=== PATIENT | female | born 1950 | race African-American/Black ===

== ENCOUNTER 2016-05-14 16:54 | Emergency (ER) | payer OTHER ==
[~2016-05-14] VITALS: Ht 160 cm; Wt 85.0 kg
[~2016-05-14 16:54] MED LIST: ATOR40TA28 PO; CARV40CR PO; EXEN10PE SQ; FURO40 PO; HYDR-3965 PO; HYDR25TA PO; IBUP-1547 PO; LISI-618 PO; METH10TA2 PO; OMEP20 PO; VERA180C4 PO
[2016-05-14 17:11] LABS: GLUCOSE,POINT OF CARE 197 MG/DL (70-110)
[2016-05-14 18:50] LABS: BASOPHILS % (AUTO) 0.8 % (0.0-2.0); HEMATOCRIT 41.9 % (36-46); LYMPHOCYTES # (AUTO) 2.3 K/uL (1.0-4.8); LYMPHOCYTES % (AUTO) 44.8 % (22.0-44.0); MEAN CORPUSCULAR HEMOGLOBIN 31.3 pg (26.0-34.0); MEAN CORPUSCULAR HGB CONC 33.5 G/dL (31.0-37.0); MEAN CORPUSCULAR VOLUME 94 fL (80-100); MONOCYTES # (AUTO) 0.4 K/uL (0.1-1.0); MONOCYTES % (AUTO) 8.6 % (2.0-9.0); NEUTROPHILS # (AUTO) 2.2 K/uL (1.8-7.7); NEUTROPHILS % (AUTO) 43.8 % (40.0-70.0); PLATELET COUNT (AUTO) 156 K/uL (150-450); RED BLOOD CELL COUNT(AUTO) 4.48 MIL/uL (4.00-5.20); RED CELL DISTRIBUTION WIDTH 12.9 % (11.5-14.5); WHITE BLOOD COUNT (AUTO) 5.1 K/uL (4.5-11.0)
[2016-05-14 19:00] LABS: ANION GAP 6 mmol/L (8-16); CARBON DIOXIDE 30 mmol/L (22-29); CHLORIDE 103 mmol/L (98-107); CREATININE 0.61 mg/dL (0.60-1.30); GLOMERULAR FILTR. RATE CALC > 60 mL/min (>60); POTASSIUM 3.5 mmol/L (3.5-5.1); SODIUM SERUM 139 mmol/L (136-145); UREA NITROGEN, BLOOD 12 mg/dL (7-18)
[2016-05-14 19:07] LABS: ALANINE AMINOTRANSFERASE 47 U/L (12-78); ALBUMIN 2.9 g/dL (3.4-5.0); ASPARTATE AMINOTRANSFERASE 27 U/L (15-37); BILIRUBIN,TOTAL 0.2 mg/dL (0.1-1.0); TOTAL PROTEIN, SERUM 7.3 g/dL (6.4-8.2)
[2016-05-14] MEDS ORDERED: SODIUM CHLORIDE 0.9% 1,000 ML IV ONE (19:30)
[2016-05-14 20:31] LABS: GLUCOSE,POINT OF CARE 104 MG/DL (70-110)
[2016-05-14 20:49] VITALS: BP 141/74
== END 2016-05-14 21:05 | disposition home or self-care (01) ==
LOC: EMS 16:55
DX: E11.65 Type 2 diabetes mellitus with hyperglycemia (principal); I10 Essential (primary) hypertension; E78.00 Pure hypercholesterolemia, unspecified; F17.210 Nicotine dependence, cigarettes, uncomplicated; Z88.0 Allergy status to penicillin
CPT/HCPCS: 36415; 80053; 82948; 82962; 83690; 84484; 85025; 93005; 99285; J7030

== ENCOUNTER → 2016-06-17 | Outpatient (CLI) | payer OTHER ==
[~2016-06-17] MED LIST changes: -FURO40 PO; -HYDR-3965 PO
== END | disposition home or self-care (01) ==
LOC: RADPV 13:26
PROVIDERS: ATTEND Orthopaedic Surgery
DX: Z51.89 Encounter for other specified aftercare (principal)

== ENCOUNTER 2016-11-21 18:54 | Emergency (ER) | payer OTHER ==
[~2016-11-21] VITALS: Ht 162.6 cm; Wt 86.0 kg
[2016-11-21] MEDS ORDERED: CLON.1 PO (19:07)
[2016-11-21] MEDS ORDERED: SOFO1TAB PO (19:07)
[2016-11-21] MEDS ORDERED: ASPIRIN 325 MG TABLET PO ONE (21:00)
[2016-11-21 21:10] LABS: BASOPHILS # (AUTO) 0.05 K/uL (0.00-0.20); BASOPHILS % (AUTO) 0.9 % (0.0-2.0); EOSINOPHILS # (AUTO) 0.19 K/uL (0.00-0.70); EOSINOPHILS % (AUTO) 3.37 % (1.0-6.0); HEMATOCRIT 40.1 % (36-46); HEMOGLOBIN 13.5 g/dL (12.0-16.0); LYMPHOCYTES # (AUTO) 2.7 K/uL (1.0-4.8); LYMPHOCYTES % (AUTO) 48.1 % (22.0-44.0); MEAN CORPUSCULAR HEMOGLOBIN 31.5 pg (26.0-34.0); MEAN CORPUSCULAR HGB CONC 33.7 G/dL (31.0-37.0); MEAN CORPUSCULAR VOLUME 93 fL (80-100); MONOCYTES # (AUTO) 0.4 K/uL (0.1-1.0); MONOCYTES % (AUTO) 6.9 % (2.0-9.0); NEUTROPHILS # (AUTO) 2.3 K/uL (1.8-7.7); NEUTROPHILS % (AUTO) 40.8 % (40.0-70.0); PLATELET COUNT (AUTO) 175 K/uL (150-450); RED BLOOD CELL COUNT(AUTO) 4.29 MIL/uL (4.00-5.20); RED CELL DISTRIBUTION WIDTH 12.3 % (11.5-14.5); WHITE BLOOD COUNT (AUTO) 5.6 K/uL (4.5-11.0)
[2016-11-21 21:16] LABS: ANION GAP 9 mmol/L (8-16); CALCIUM, TOTAL 9.3 mg/dL (8.8-10.5); CARBON DIOXIDE 30 mmol/L (22-29); CHLORIDE 104 mmol/L (98-107); CREATININE 0.84 mg/dL (0.60-1.30); GLOMERULAR FILTR. RATE CALC > 60 mL/min (>60); POTASSIUM 3.3 mmol/L (3.5-5.1); SODIUM SERUM 143 mmol/L (136-145); UREA NITROGEN, BLOOD 10 mg/dL (7-18)
[2016-11-21 21:20] LABS: CREATINE KINASE, TOTAL 142 U/L (26-192)
[2016-11-21 21:41] LABS: ALANINE AMINOTRANSFERASE 19 U/L (12-78); ALBUMIN 3.1 g/dL (3.4-5.0); ASPARTATE AMINOTRANSFERASE 15 U/L (15-37); BILIRUBIN,TOTAL 0.2 mg/dL (0.1-1.0); TOTAL PROTEIN, SERUM 7.2 g/dL (6.4-8.2)
[2016-11-21 21:57] VITALS: BP 116/67
== END 2016-11-21 22:15 | disposition left against medical advice (07) ==
LOC: EMS 18:57
DX: R07.9 Chest pain, unspecified (principal); R94.31 Abnormal electrocardiogram [ECG] [EKG]; R61 Generalized hyperhidrosis; E11.9 Type 2 diabetes mellitus without complications; E78.00 Pure hypercholesterolemia, unspecified; I10 Essential (primary) hypertension; F17.210 Nicotine dependence, cigarettes, uncomplicated; Z88.0 Allergy status to penicillin
CPT/HCPCS: 82962; 93005; 99285

== ENCOUNTER 2017-04-04 14:44 | Emergency (ER) | payer OTHER ==
[~2017-04-04] VITALS: Ht 162.6 cm; Wt 83.6 kg
[~2017-04-04 14:44] MED LIST changes: +CLON-570 PO; -EXEN10PE SQ; -IBUP-1547 PO; -LISI-618 PO; -METH10TA2 PO; -OMEP20 PO; +SOFO1TAB PO
[2017-04-04] MEDS ORDERED: MIRALAX PO (14:57)
[2017-04-04] MEDS ORDERED: TRAM50TA4 PO (14:57)
[2017-04-04] MEDS ORDERED: TRAZ-144 PO (14:57)
[2017-04-04] MEDS ORDERED: DOCU-275 PO (14:57)
[2017-04-04] MEDS ORDERED: LIRA0.6P SQ (14:57)
[2017-04-04 14:58] LABS: GLUCOSE,POINT OF CARE 102 MG/DL (70-110)
[2017-04-04] MEDS ORDERED: KETOROLAC TROMETHAMINE 60 MG/2 ML VIAL IM ONE (15:30)
[2017-04-04] MEDS ORDERED: CloNIDine HCL 0.1 MG TABLET PO ONE (15:30)
[2017-04-04] MEDS ORDERED: CARV40CR PO (15:46)
[2017-04-04] MEDS ORDERED: CLON-570 PO (15:46)
[2017-04-04] MEDS ORDERED: EXEN10PE3 SQ (15:46)
[2017-04-04] MEDS ORDERED: KETOROLAC TROMETHAMINE 30 MG/ML VIAL IVP ONE (16:15)
[2017-04-04 17:15] VITALS: BP 147/81
== END 2017-04-04 17:40 | disposition home or self-care (01) ==
LOC: EMS 14:46
DX: R51 Headache (principal); I10 Essential (primary) hypertension; E78.00 Pure hypercholesterolemia, unspecified; M81.0 Age-related osteoporosis without current pathological fracture; E11.9 Type 2 diabetes mellitus without complications; F17.210 Nicotine dependence, cigarettes, uncomplicated; Z88.0 Allergy status to penicillin; Z90.49 Acquired absence of other specified parts of digestive tract
CPT/HCPCS: 70450; 82962; 96374; 99284; J1885 ×2

== ENCOUNTER 2018-04-09 11:09 | Emergency (ER) | payer OTHER ==
[~2018-04-09] VITALS: Ht 162.6 cm; Wt 83.6 kg
[~2018-04-09 11:09] MED LIST changes: +DOCU-275 PO; +EXEN10PE3 SQ; +LIRA0.6P SQ; +MIRALAX PO; -SOFO1TAB PO; +TRAM50TA4 PO; +TRAZ-219 PO
[2018-04-09 11:29] LABS: GLUCOSE,POINT OF CARE 99 MG/DL (70-110)
[2018-04-09] MEDS ORDERED: SODIUM CHLORIDE 0.9% 1,000 ML IV ONE (12:00)
[2018-04-09] MEDS ORDERED: ONDANSETRON HCL 4 MG/2 ML VIAL IVP ONE (12:00)
[2018-04-09] MEDS ORDERED: LOPERAMIDE HCL 2 MG CAPSULE PO ONE (12:00)
[2018-04-09] MEDS ORDERED: VERA240SR PO (12:05)
[2018-04-09 12:52] LABS: BASOPHILS % (AUTO) 0.5 % (0.0-2.0); EOSINOPHILS % (AUTO) 1.8 % (1.0-6.0); HEMATOCRIT 41.6 % (36-46); HEMOGLOBIN 14.4 g/dL (12.0-16.0); LYMPHOCYTES # (AUTO) 2.1 K/uL (1.0-4.8); MEAN CORPUSCULAR HEMOGLOBIN 31.8 pg (26.0-34.0); MEAN CORPUSCULAR HGB CONC 34.7 G/dL (31.0-37.0); MEAN CORPUSCULAR VOLUME 92 fL (80-100); MONOCYTES # (AUTO) 0.5 K/uL (0.1-1.0); MONOCYTES % (AUTO) 7.7 % (2.0-9.0); PLATELET COUNT (AUTO) 154 K/uL (150-450); RED BLOOD CELL COUNT(AUTO) 4.53 MIL/uL (4.00-5.20); RED CELL DISTRIBUTION WIDTH 12.5 % (11.5-14.5)
[2018-04-09 13:08] LABS: ALANINE AMINOTRANSFERASE 28 U/L (12-78); ALBUMIN 3.4 g/dL (3.4-5.0); ALKALINE PHOSPHATASE 86 U/L (46-116); ANION GAP 8 mmol/L (8-16); ASPARTATE AMINOTRANSFERASE 23 U/L (15-37); BILIRUBIN,TOTAL 0.4 mg/dL (0.1-1.0); CALCIUM, TOTAL 9.2 mg/dL (8.8-10.5); CARBON DIOXIDE 32 mmol/L (22-29); CHLORIDE 100 mmol/L (98-107); CREATININE 0.57 mg/dL (0.60-1.30); GLOMERULAR FILTR. RATE CALC > 60 mL/min (>60); GLUCOSE,RANDOM 81 mg/dL (70-110); LIPASE 111 U/L (73-393); SODIUM SERUM 140 mmol/L (136-145); TOTAL PROTEIN, SERUM 7.8 g/dL (6.4-8.2); UREA NITROGEN, BLOOD 8 mg/dL (7-18)
[2018-04-09 13:12] LABS: POTASSIUM 2.7 mmol/L (3.5-5.1)
[2018-04-09] MEDS ORDERED: CIPROFLOXACIN HCL 250 MG TABLET PO ONE (13:15)
[2018-04-09] MEDS ORDERED: POTASSIUM CHLORIDE 20 MEQ ER TABLET PO ONE (13:15)
[2018-04-09] MEDS ORDERED: KETOROLAC TROMETHAMINE 30 MG/ML VIAL IVP ONE (13:30)
[2018-04-09 14:07] VITALS: BP 181/83
== END 2018-04-09 14:28 | disposition home or self-care (01) ==
LOC: EMS 11:10
DX: R11.2 Nausea with vomiting, unspecified (principal); R19.7 Diarrhea, unspecified; E11.9 Type 2 diabetes mellitus without complications; E78.00 Pure hypercholesterolemia, unspecified; I10 Essential (primary) hypertension; M19.90 Unspecified osteoarthritis, unspecified site; F17.210 Nicotine dependence, cigarettes, uncomplicated; Z90.49 Acquired absence of other specified parts of digestive tract; Z88.0 Allergy status to penicillin
CPT/HCPCS: 36415; 80053; 82962; 83690; 84484; 85025; 96361; 96374; 96375; 99283; J1885; J2405; J7030

== ENCOUNTER 2020-11-03 18:16 | Emergency (ER) | payer MEDICARE, OTHER ==
[~2020-11-03] VITALS: Ht 167.6 cm; Wt 75.0 kg
[~2020-11-03 18:16] MED LIST changes: +CARV40CP11 PO; -CARV40CR PO; -CLON-570 PO; +CLON0.1T2 PO; +DOCU-270 PO; -DOCU-275 PO; -HYDR25TA PO; +HYDR25TA2 PO; -TRAZ-219 PO; +TRAZ-252 PO; -VERA180C4 PO; +VERA240SR PO
[2020-11-03 19:44] LABS: BASOPHILS % (AUTO) 0.7 % (0.0-2.0); EOSINOPHILS % (AUTO) 0.5 % (1.0-6.0); HEMATOCRIT 44.9 % (36-46); HEMOGLOBIN 15.1 g/dL (12.0-16.0); LYMPHOCYTES # (AUTO) 1.7 K/uL (1.0-4.8); LYMPHOCYTES % (AUTO) 26.7 % (22.0-44.0); MEAN CORPUSCULAR HEMOGLOBIN 33.1 pg (26.0-34.0); MEAN CORPUSCULAR HGB CONC 33.7 G/dL (31.0-37.0); MEAN CORPUSCULAR VOLUME 98 fL (80-100); MONOCYTES # (AUTO) 0.4 K/uL (0.1-1.0); MONOCYTES % (AUTO) 7.1 % (2.0-9.0); PLATELET COUNT (AUTO) 184 K/uL (150-450); RED BLOOD CELL COUNT(AUTO) 4.57 MIL/uL (4.00-5.20)
[2020-11-03 19:53] LABS: ANION GAP 10 mmol/L (8-16); CALCIUM, TOTAL 9.3 mg/dL (8.8-10.5); CARBON DIOXIDE 27 mmol/L (22-29); CHLORIDE 102 mmol/L (98-107); CREATININE 1.07 mg/dL (0.60-1.30); GLOMERULAR FILTR. RATE CALC > 60 mL/min (>60); GLUCOSE,RANDOM 177 mg/dL (70-110); POTASSIUM 3.7 mmol/L (3.5-5.1); SODIUM SERUM 139 mmol/L (136-145); UREA NITROGEN, BLOOD 16 mg/dL (7-18)
[2020-11-03 19:57] LABS: PROTHROMBIN TIME 10.6 SEC (9.4-11.6)
[2020-11-03 20:01] LABS: LACTIC ACID 1.7 mmol/L (0.4-2.0)
[2020-11-03 20:18] LABS: ALANINE AMINOTRANSFERASE 22 U/L (12-78); ALBUMIN 3.2 g/dL (3.4-5.0); ALKALINE PHOSPHATASE 95 U/L (46-116); ASPARTATE AMINOTRANSFERASE 18 U/L (15-37); BILIRUBIN,TOTAL 0.4 mg/dL (0.1-1.0); CREATINE KINASE, TOTAL ONLY 80 U/L (26-192); TOTAL PROTEIN, SERUM 7.3 g/dL (6.4-8.2)
[2020-11-03 21:03] LABS: APPEARANCE,URINE CLOUDY (CLEAR); GLUCOSE, URINE (UA) NEGATIVE (NEGATIVE); KETONES,URINE TRACE mg/dL (NEGATIVE); LEUKOCYTE ESTERASE ,URINE NEGATIVE (NEGATIVE); NITRATE,URINE NEGATIVE (NEGATIVE); OCCULT BLOOD,URINE NEGATIVE (NEGATIVE); PROTEIN,URINE POS 1+ (NEGATIVE)
[2020-11-03 21:05] LABS: BILIRUBIN,URINE PRELIM. POSITIVE (NEGATIVE)
[2020-11-03 21:09] LABS: AMPHET/METH SCREEN,URINE NEGATIVE (NEGATIVE); BARBITURATE SCREEN, URINE NEGATIVE (NEGATIVE); BENZODIAZEPINES SCREEN,URINE NEGATIVE (NEGATIVE); CANNABINOID SCREEN,URINE NEGATIVE (NEGATIVE); COCAINE SCREEN,URINE NEGATIVE (NEGATIVE); METHADONE SCREEN, URINE POSITIVE (NEGATIVE); OPIATE SCREEN,URINE POSITIVE (NEGATIVE)
[2020-11-03 21:10] LABS: PHENCYCLIDINE SCREEN,URINE NEGATIVE (NEGATIVE)
[2020-11-03 21:16] VITALS: BP 120/67
== END 2020-11-03 22:22 | disposition left against medical advice (07) ==
LOC: EMS 18:29
DX: H53.15 Visual distortions of shape and size (principal); I25.10 Atherosclerotic heart disease of native coronary artery without angina pectoris; E11.9 Type 2 diabetes mellitus without complications; E78.00 Pure hypercholesterolemia, unspecified; I10 Essential (primary) hypertension; Z90.49 Acquired absence of other specified parts of digestive tract; F17.210 Nicotine dependence, cigarettes, uncomplicated; Z88.0 Allergy status to penicillin; Z79.899 Other long term (current) drug therapy
CPT/HCPCS: 51702; 70450; 71045; 80053; 81003; 82550; 82962; 83605; 84484; 85025; 85610; 85730; 87040; 93005; 99285; 36415-L1; 36415-TC

== ENCOUNTER 2021-01-29 17:33 | Inpatient (IN) | payer MEDICARE, OTHER ==
[~2021-01-29] VITALS: Ht 162.6 cm; Wt 75.3 kg
[~2021-01-29 17:33] MED LIST changes: -VERA240SR PO; +VERA240T96 PO
[2021-01-29] MEDS ORDERED: SODIUM CHLORIDE 0.9% 100 ML ONE (17:48)
[2021-01-29] MEDS ORDERED: IOHEXOL 350 MG/ML 100 ML VIAL ONE (17:49)
[2021-01-29 18:00] LABS: EOSINOPHILS % (AUTO) 1.8 % (1.0-6.0); HEMATOCRIT 41.1 % (36-46); HEMOGLOBIN 13.9 g/dL (12.0-16.0); LYMPHOCYTES # (AUTO) 1.5 K/uL (1.0-4.8); MEAN CORPUSCULAR HEMOGLOBIN 32.8 pg (26.0-34.0); MEAN CORPUSCULAR HGB CONC 33.7 G/dL (31.0-37.0); MEAN CORPUSCULAR VOLUME 97 fL (80-100); MONOCYTES # (AUTO) 0.4 K/uL (0.1-1.0); MONOCYTES % (AUTO) 8.9 % (2.0-9.0); NEUTROPHILS # (AUTO) 2.2 K/uL (1.8-7.7); NEUTROPHILS % (AUTO) 52.3 % (40.0-70.0); PLATELET COUNT (AUTO) 150 K/uL (150-450); RED BLOOD CELL COUNT(AUTO) 4.22 MIL/uL (4.00-5.20); RED CELL DISTRIBUTION WIDTH 12.5 % (11.5-14.5)
[2021-01-29 18:05] LABS: ANION GAP 9 mmol/L (8-16); CALCIUM, TOTAL 8.7 mg/dL (8.8-10.5); CARBON DIOXIDE 28 mmol/L (22-29); CHLORIDE 105 mmol/L (98-107); CREATININE 0.95 mg/dL (0.60-1.30); GLOMERULAR FILTR. RATE CALC > 60 mL/min (>60); GLUCOSE,RANDOM 146 mg/dL (70-110); POTASSIUM 4.6 mmol/L (3.5-5.1); SODIUM SERUM 142 mmol/L (136-145); UREA NITROGEN, BLOOD 15 mg/dL (7-18)
[2021-01-29 18:11] LABS: ALANINE AMINOTRANSFERASE 30 U/L (12-78); ALBUMIN 3.1 g/dL (3.4-5.0); ALKALINE PHOSPHATASE 102 U/L (46-116); ASPARTATE AMINOTRANSFERASE 23 U/L (15-37); BILIRUBIN,TOTAL 0.3 mg/dL (0.1-1.0); TOTAL PROTEIN, SERUM 7.1 g/dL (6.4-8.2)
[2021-01-29 18:18] LABS: PROTHROMBIN TIME 10.3 SEC (9.4-11.6)
[2021-01-29 18:40] LABS: COVID AG,FIA SOURCE NASOPHARYNGEAL
[2021-01-29] MEDS ORDERED: ASPIRIN 81 MG CHEWABLE TABLET PO ONE (18:45)
[2021-01-29] MEDS ORDERED: METH10 PO (18:48)
[2021-01-29] MEDS ORDERED: ONDANSETRON HCL 4 MG/2 ML VIAL IVP PRN (19:00)
[2021-01-29] MEDS ORDERED: ACETAMINOPHEN 325 MG TABLET PO PRN (19:00)
[2021-01-29] MEDS ORDERED: INSULIN LISPRO 100 UNITS/ML SQ PRN (20:45)
[2021-01-29] MEDS ORDERED: DEXTROSE 50%-WATER 25 GM/50 ML SYRINGE IVP PRN (20:45)
[2021-01-29] MEDS ORDERED: ATORVASTATIN CALCIUM 40 MG TABLET PO SCH (21:00)
[2021-01-29 21:44] VITALS: BP 164/82
[2021-01-29 23:29] LABS: GLUCOMETER DEV NAME(LOC) 5S.1; GLUCOSE,POINT OF CARE 102 MG/DL (70-110)
[2021-01-29 23:57] VITALS: BP 166/75
[2021-01-30] MEDS ORDERED: PNEUMOCOCCAL VACCINE POLYVALENT 0.5 ML VIAL [PPSV23] IM. ONE (00:45)
[2021-01-30] MEDS ORDERED: INFLUENZA VIRUS VACCINE QVS 2021-22 (6MO+)/PF 60 MCG/0.5 ML SYRINGE IM. ONE (00:45)
[2021-01-30 04:56] VITALS: BP 168/86
[2021-01-30] MEDS ORDERED: PB/HYOSCY/ATR/SCOP/LIDO/MAALOX 55 ML BOTTLE PO ONE (06:00)
[2021-01-30 07:11] VITALS: BP 182/95
[2021-01-30] MEDS ORDERED: ASPIRIN 81 MG CHEWABLE TABLET PO SCH (08:00)
[2021-01-30 08:20] LABS: GLUCOMETER DEV NAME(LOC) 5N.1C; GLUCOSE,POINT OF CARE 103 MG/DL (70-110)
[2021-01-30] MEDS ORDERED: DOCUSATE SODIUM 100 MG CAPSULE PO SCH (09:00)
[2021-01-30] MEDS ORDERED: TraZODone HCL 50 MG TABLET PO SCH (09:00)
[2021-01-30 10:20] LABS: BASOPHILS % (AUTO) 0.7 % (0.0-2.0); HEMATOCRIT 41.4 % (36-46); HEMOGLOBIN 13.8 g/dL (12.0-16.0); LYMPHOCYTES # (AUTO) 1.2 K/uL (1.0-4.8); LYMPHOCYTES % (AUTO) 25.8 % (22.0-44.0); MEAN CORPUSCULAR HGB CONC 33.3 G/dL (31.0-37.0); MEAN CORPUSCULAR VOLUME 99 fL (80-100); MONOCYTES # (AUTO) 0.5 K/uL (0.1-1.0); MONOCYTES % (AUTO) 10.9 % (2.0-9.0); NEUTROPHILS # (AUTO) 2.8 K/uL (1.8-7.7); NEUTROPHILS % (AUTO) 60.6 % (40.0-70.0); PLATELET COUNT (AUTO) 157 K/uL (150-450); RED BLOOD CELL COUNT(AUTO) 4.18 MIL/uL (4.00-5.20); RED CELL DISTRIBUTION WIDTH 12.6 % (11.5-14.5)
[2021-01-30 10:30] LABS: ANION GAP 5 mmol/L (8-16); CARBON DIOXIDE 30 mmol/L (22-29); CHLORIDE 107 mmol/L (98-107); CREATININE 0.93 mg/dL (0.60-1.30); GLOMERULAR FILTR. RATE CALC > 60 mL/min (>60); GLUCOSE,RANDOM 154 mg/dL (70-110); POTASSIUM 4.5 mmol/L (3.5-5.1); SODIUM SERUM 142 mmol/L (136-145); UREA NITROGEN, BLOOD 13 mg/dL (7-18)
[2021-01-30 10:44] LABS: ALANINE AMINOTRANSFERASE 32 U/L (12-78); ALBUMIN 2.9 g/dL (3.4-5.0); ALKALINE PHOSPHATASE 99 U/L (46-116); ASPARTATE AMINOTRANSFERASE 25 U/L (15-37); BILIRUBIN,TOTAL 0.4 mg/dL (0.1-1.0); THYROID STIMULATING HORMONE 0.57 uIU/mL (0.36-3.74)
[2021-01-30 11:40] VITALS: BP 196/87
[2021-01-30 11:41] VITALS: BP 187/65
[2021-01-30] MEDS ORDERED: METHADONE HCL 10 MG TABLET PO SCH (12:10)
[2021-01-30] MEDS ORDERED: METH10 PO (12:19)
[2021-01-30 15:10] VITALS: BP 184/91
[2021-01-30] MEDS ORDERED: TraMADol HCL 50 MG TABLET PO PRN (15:15)
[2021-01-30] MEDS ORDERED: CloNIDine HCL 0.1 MG TABLET PO SCH (15:15)
[2021-01-30] MEDS ORDERED: HYDROCODONE/ACETAMINOPHEN 5-325 MG TABLET PO PRN (15:30)
[2021-01-30] MEDS ORDERED: OMEPRAZOLE 20 MG CAPSULE PO SCH (15:30)
[2021-01-30 19:56] LABS: GLUCOMETER DEV NAME(LOC) 5N.1C; GLUCOSE,POINT OF CARE 133 MG/DL (70-110)
[2021-01-31] MEDS ORDERED: HYDROCHLOROTHIAZIDE 25 MG TABLET PO SCH (09:00)
[2021-01-31] MEDS ORDERED: POLYETHYLENE GLYCOL 3350 17 GM PACKET PO SCH (09:00)
[2021-01-31] MEDS ORDERED: [UNRECOGNIZED DRUG - OTHER] SQ SCH (09:00)
[2021-01-31] MEDS ORDERED: VERAPAMIL HCL 240 MG ER TABLET PO SCH (09:00)
[2021-01-31] MEDS ORDERED: CARVEDILOL PHOSPHATE 40 MG CR CAPSULE PO SCH (09:00)
[2021-01-31] MEDS ORDERED: [UNRECOGNIZED DRUG - OTHER] SQ SCH (09:00)
== END 2021-01-30 19:30 | disposition short-term general hospital (02) | DRG 69 ==
LOC: EMS 17:36 → 5S 20:00
PROVIDERS: ADMIT Internal Medicine; ATTEND Internal Medicine
DX: G45.9 Transient cerebral ischemic attack, unspecified (principal); G37.9 Demyelinating disease of central nervous system, unspecified; E44.0 Moderate protein-calorie malnutrition; I10 Essential (primary) hypertension; E11.9 Type 2 diabetes mellitus without complications; E78.00 Pure hypercholesterolemia, unspecified; I25.10 Atherosclerotic heart disease of native coronary artery without angina pectoris; M81.0 Age-related osteoporosis without current pathological fracture; G89.29 Other chronic pain; M19.90 Unspecified osteoarthritis, unspecified site; K75.9 Inflammatory liver disease, unspecified; Z20.822 Contact with and (suspected) exposure to COVID-19; F17.210 Nicotine dependence, cigarettes, uncomplicated; Z88.0 Allergy status to penicillin; Z86.73 Personal history of transient ischemic attack (TIA), and cerebral infarction without residual deficits; Z79.891 Long term (current) use of opiate analgesic; Z90.49 Acquired absence of other specified parts of digestive tract
CPT/HCPCS: 70496; 70551; 71045; 80053; 82962; 84443; 84484; 85025; 85610; 92610; 93005; 93306; 93880; 97165; 97535; 99291; G0378; J7050; Q9967; 36415-L1; 36415-TC; 70450; 70450-TC

== ENCOUNTER 2021-07-05 15:55 | Emergency (ER) | payer MEDICARE, OTHER ==
[~2021-07-05] VITALS: Ht 152.4 cm; Wt 68.2 kg
[~2021-07-05 15:55] MED LIST changes: +METH10 PO
[2021-07-05] MEDS ORDERED: HydrALAZINE HCL 20 MG/ML VIAL IVP ONE (18:15)
[2021-07-05] MEDS ORDERED: CloNIDine HCL 0.1 MG TABLET PO ONE (19:45)
[2021-07-05 20:31] VITALS: BP 153/113
== END 2021-07-05 20:31 | disposition home or self-care (01) ==
LOC: EMS 16:04
DX: I10 Essential (primary) hypertension (principal); E11.9 Type 2 diabetes mellitus without complications; Z88.0 Allergy status to penicillin; Z79.899 Other long term (current) drug therapy
CPT/HCPCS: 96374; 99285; J0360

== ENCOUNTER 2023-11-12 14:29 | Emergency (ER) | payer MEDICARE, OTHER ==
[~2023-11-12] VITALS: Ht 162.6 cm; Wt 72.7 kg
[~2023-11-12 14:29] MED LIST changes: -CLON0.1T2 PO; -DOCU-270 PO; +DOCU-385 PO; -METH10 PO; -TRAM50TA4 PO; +TRAM50TA5 PO
[2023-11-12 14:50] LABS: GLUCOMETER DEV NAME(LOC) ER.7; GLUCOSE,POINT OF CARE 151 MG/DL (70-110)
[2023-11-12 16:45] LABS: BASOPHILS % (AUTO) 1.2 % (0.0-2.0); EOSINOPHILS % (AUTO) 3.5 % (1.0-6.0); HEMATOCRIT 43.4 % (36-46); HEMOGLOBIN 14.6 g/dL (12.0-16.0); LYMPHOCYTES # (AUTO) 1.2 K/uL (1.0-4.8); LYMPHOCYTES % (AUTO) 24.4 % (22.0-44.0); MEAN CORPUSCULAR HEMOGLOBIN 31.1 pg (26.0-34.0); MEAN CORPUSCULAR HGB CONC 33.7 G/dL (31.0-37.0); MEAN CORPUSCULAR VOLUME 92 fL (80-100); MONOCYTES # (AUTO) 0.4 K/uL (0.1-1.0); MONOCYTES % (AUTO) 8.7 % (2.0-9.0); NEUTROPHILS # (AUTO) 2.9 K/uL (1.8-7.7); NEUTROPHILS % (AUTO) 62.2 % (40.0-70.0); PLATELET COUNT (AUTO) 190 K/uL (150-450); RED BLOOD CELL COUNT(AUTO) 4.71 MIL/uL (4.00-5.20); RED CELL DISTRIBUTION WIDTH 12.5 % (11.5-14.5); WHITE BLOOD COUNT (AUTO) 4.7 K/uL (4.5-11.0)
[2023-11-12 16:58] LABS: PROTHROMBIN TIME 10.3 SEC (9.4-11.6)
[2023-11-12 17:03] LABS: TROPONIN I-HIGH SENSITIVITY 45 ng/L (<51)
[2023-11-12 17:05] LABS: B-TYPE NATRIURETIC PEPTIDE 211 pg/mL (0-100)
[2023-11-12 17:14] LABS: ALANINE AMINOTRANSFERASE 16 U/L (12-78); ALKALINE PHOSPHATASE 101 U/L (46-116); ANION GAP 12 mmol/L (8-16); ASPARTATE AMINOTRANSFERASE 18 U/L (15-37); BILIRUBIN,TOTAL 0.3 mg/dL (0.1-1.0); CALCIUM, TOTAL 9.2 mg/dL (8.8-10.5); CARBON DIOXIDE 26 mmol/L (22-29); CHLORIDE 102 mmol/L (98-107); CREATININE 0.92 mg/dL (0.60-1.30); GLOMERULAR FILTR. RATE CALC > 60 mL/min (>60); GLUCOSE,RANDOM 117 mg/dL (70-110); SODIUM SERUM 140 mmol/L (136-145); TOTAL PROTEIN, SERUM 7.5 g/dL (6.4-8.2); UREA NITROGEN, BLOOD 13 mg/dL (7-18)
[2023-11-12 17:16] LABS: CREATINE KINASE, TOTAL ONLY 106 U/L (26-192)
[2023-11-12 17:30] LABS: APPEARANCE,URINE CLEAR (CLEAR); BILIRUBIN,URINE NEGATIVE (NEGATIVE); COLOR,URINE LIGHT YELLOW (YELLOW); GLUCOSE, URINE (UA) NEGATIVE (NEGATIVE); KETONES,URINE NEGATIVE (NEGATIVE); LEUKOCYTE ESTERASE ,URINE NEGATIVE (NEGATIVE); NITRATE,URINE NEGATIVE (NEGATIVE); OCCULT BLOOD,URINE NEGATIVE (NEGATIVE); PH,URINE 6.5 (5.0-8.0); PROTEIN,URINE NEGATIVE (NEGATIVE); SPECIFIC GRAVITIY, URINE 1.019 (1.003-1.030); UROBILINOGEN,URINE <=1.0 mg/dL (<=1.0)
[2023-11-12] MEDS: POTASSIUM CHLORIDE 20 MEQ ER TABLET PO ONE (18:34)
[2023-11-12 19:00] VITALS: BP 133/79; PULSE 74; RESP 16; TEMP 98.3
== END 2023-11-12 21:21 | disposition home or self-care (01) ==
LOC: EMS 14:29
DX: R60.0 Localized edema (principal); I73.9 Peripheral vascular disease, unspecified; E87.6 Hypokalemia; F17.210 Nicotine dependence, cigarettes, uncomplicated; E11.9 Type 2 diabetes mellitus without complications; I10 Essential (primary) hypertension
CPT/HCPCS: 71045; 80053; 81003; 82550; 82962; 83880; 84484; 85025; 85610; 85730; 93005; 93970; 99285; 36415-L1; 36415-TC

== ENCOUNTER 2024-08-06 11:53 | Inpatient (IN) | payer MEDICARE, OTHER ==
[~2024-08-06] VITALS: Ht 162.6 cm; Wt 77.1 kg
[~2024-08-06 11:53] MED LIST changes: +ACET650S24 PR; +ASPI-1450 PO; -ATOR40TA28 PO; -CARV40CP11 PO; +CLON0.1T2 PO; -EXEN10PE3 SQ; +FAMO20 PO; +HEPA500018 SQ; -HYDR25TA2 PO; +INSU100V SQ; -LIRA0.6P SQ; +LOSA-382 PO; +METH10 PO; -MIRALAX PO; +NICO-800 TD; +ROSU10TA72 PO; -TRAM50TA5 PO; -TRAZ-252 PO
[2024-08-06] MEDS ORDERED: ACETAMINOPHEN 325 MG TABLET PO PRN (12:30)
[2024-08-06] MEDS ORDERED: ONDANSETRON HCL 4 MG/2 ML VIAL IVP PRN (12:30)
[2024-08-06] MEDS ORDERED: DEXTROSE 50%-WATER 25 GM/50 ML SYRINGE IVP PRN (12:30)
[2024-08-06] MEDS ORDERED: BISACODYL 10 MG RECTAL RECTAL SUPPOSITORY PR PRN (12:30)
[2024-08-06] MEDS ORDERED: DONE-52 PO (12:31)
[2024-08-06] MEDS ORDERED: HYDR25TA84 PO (12:31)
[2024-08-06] MEDS ORDERED: MEMA5TAB16 PO (12:31)
[2024-08-06] MEDS ORDERED: CLON1PAT13 TP (12:31)
[2024-08-06] MEDS: AmLODIPine BESYLATE 10 MG TABLET PO SCH (13:04)
[2024-08-06 13:08] LABS: EOSINOPHILS % (AUTO) 1.3 % (1.0-6.0); HEMATOCRIT 46.7 % (36-46); LYMPHOCYTES # (AUTO) 1.5 K/uL (1.0-4.8); LYMPHOCYTES % (AUTO) 27.5 % (22.0-44.0); MEAN CORPUSCULAR HEMOGLOBIN 30.7 pg (26.0-34.0); MEAN CORPUSCULAR HGB CONC 34.2 G/dL (31.0-37.0); MEAN CORPUSCULAR VOLUME 90 fL (80-100); MONOCYTES # (AUTO) 0.4 K/uL (0.1-1.0); MONOCYTES % (AUTO) 7.4 % (2.0-9.0); NEUTROPHILS # (AUTO) 3.3 K/uL (1.8-7.7); NEUTROPHILS % (AUTO) 62.8 % (40.0-70.0); PLATELET COUNT (AUTO) 187 K/uL (150-450); RED CELL DISTRIBUTION WIDTH 13.4 % (11.5-14.5); WHITE BLOOD COUNT (AUTO) 5.3 K/uL (4.5-11.0)
[2024-08-06 13:18] LABS: ANION GAP 6 mmol/L (8-16); CARBON DIOXIDE 33 mmol/L (22-29); CHLORIDE 103 mmol/L (98-107); CREATININE 0.91 mg/dL (0.60-1.30); GLOMERULAR FILTR. RATE CALC > 60 mL/min (>60); GLUCOSE,RANDOM 116 mg/dL (70-110); POTASSIUM 3.6 mmol/L (3.5-5.1); SODIUM SERUM 142 mmol/L (136-145); UREA NITROGEN, BLOOD 11 mg/dL (7-18)
[2024-08-06 13:59] LABS: APPEARANCE,URINE CLEAR (CLEAR); BILIRUBIN,URINE NEGATIVE (NEGATIVE); COLOR,URINE LIGHT YELLOW (YELLOW); GLUCOSE, URINE (UA) NEGATIVE (NEGATIVE); KETONES,URINE NEGATIVE (NEGATIVE); LEUKOCYTE ESTERASE ,URINE NEGATIVE (NEGATIVE); NITRATE,URINE NEGATIVE (NEGATIVE); OCCULT BLOOD,URINE NEGATIVE (NEGATIVE); PH,URINE 6.5 (5.0-8.0); PROTEIN,URINE 30-70 mg/dL (NEGATIVE); SPECIFIC GRAVITIY, URINE 1.012 (1.003-1.030); UROBILINOGEN,URINE <=1.0 mg/dL (<=1.0)
[2024-08-06] MEDS: HydrALAZINE HCL 20 MG/ML VIAL IVP PRN (15:39)
[2024-08-06] MEDS: HEPARIN SODIUM,PORCINE 5,000 UNITS/ML VIAL SQ SCH (15:39)
[2024-08-06 18:25] VITALS: BP 180/75; PULSE 83; RESP 16; TEMP 97.5; O2SAT 97
[2024-08-06 20:21] VITALS: BP 165/62; PULSE 69; RESP 18; TEMP 97.5; O2SAT 97
[2024-08-06] MEDS: LOSARTAN POTASSIUM 25 MG TABLET PO SCH (20:28)
[2024-08-06] MEDS: DOCUSATE SODIUM 100 MG CAPSULE PO SCH (20:28)
[2024-08-06] MEDS: LABETALOL HCL 5 MG/ML 20 ML VIAL IVP ONE (20:29)
[2024-08-06 20:56] LABS: GLUCOMETER DEV NAME(LOC) 5N.1D; GLUCOSE,POINT OF CARE 139 MG/DL (70-110)
[2024-08-07] VITALS (7 sets, daily range): BP systolic 142–166; BP diastolic 68–91; PULSE 70–92; RESP 18–19; TEMP 97.5–98.2; O2SAT 94–98
[2024-08-07] MEDS: ASPIRIN 81 MG CHEWABLE TABLET PO SCH (08:23)
[2024-08-07] MEDS: ROSUVASTATIN CALCIUM 10 MG TABLET PO SCH (08:24)
[2024-08-07] MEDS: METHADONE HCL 10 MG TABLET PO SCH (08:26)
[2024-08-07] MEDS: FAMOTIDINE 20 MG TABLET PO SCH (08:26)
[2024-08-07 12:25] LABS: GLUCOMETER DEV NAME(LOC) 5N.1D; GLUCOSE,POINT OF CARE 196 MG/DL (70-110)
[2024-08-07] MEDS: INSULIN LISPRO 100 UNITS/ML SQ PRN (12:26)
[2024-08-07 14:05] LABS: BASOPHILS % (AUTO) 0.8 % (0.0-2.0); EOSINOPHILS % (AUTO) 0.5 % (1.0-6.0); HEMATOCRIT 46.7 % (36-46); HEMOGLOBIN 15.6 g/dL (12.0-16.0); LYMPHOCYTES # (AUTO) 1.7 K/uL (1.0-4.8); LYMPHOCYTES % (AUTO) 24.4 % (22.0-44.0); MEAN CORPUSCULAR HEMOGLOBIN 30.2 pg (26.0-34.0); MEAN CORPUSCULAR HGB CONC 33.3 G/dL (31.0-37.0); MEAN CORPUSCULAR VOLUME 91 fL (80-100); MONOCYTES # (AUTO) 0.3 K/uL (0.1-1.0); MONOCYTES % (AUTO) 4.7 % (2.0-9.0); NEUTROPHILS # (AUTO) 4.7 K/uL (1.8-7.7); NEUTROPHILS % (AUTO) 69.6 % (40.0-70.0); PLATELET COUNT (AUTO) 197 K/uL (150-450); RED BLOOD CELL COUNT(AUTO) 5.15 MIL/uL (4.00-5.20); RED CELL DISTRIBUTION WIDTH 13.3 % (11.5-14.5); WHITE BLOOD COUNT (AUTO) 6.8 K/uL (4.5-11.0)
[2024-08-07 14:24] LABS: ANION GAP 10 mmol/L (8-16); CALCIUM, TOTAL 9.4 mg/dL (8.8-10.5); CARBON DIOXIDE 29 mmol/L (22-29); CHLORIDE 105 mmol/L (98-107); CREATININE 0.98 mg/dL (0.60-1.30); GLOMERULAR FILTR. RATE CALC > 60 mL/min (>60); GLUCOSE,RANDOM 169 mg/dL (70-110); POTASSIUM 3.2 mmol/L (3.5-5.1); SODIUM SERUM 144 mmol/L (136-145); UREA NITROGEN, BLOOD 12 mg/dL (7-18)
[2024-08-07] MEDS: POTASSIUM CHLORIDE 20 MEQ ER TABLET PO ONE (20:24)
[2024-08-08] VITALS (7 sets, daily range): BP systolic 151–175; BP diastolic 67–90; PULSE 66–83; RESP 16–19; TEMP 97.3–98.2; O2SAT 95–97
[2024-08-08 12:31] LABS: GLUCOMETER DEV NAME(LOC) 5N.1D; GLUCOSE,POINT OF CARE 198 MG/DL (70-110)
[2024-08-08 17:40] LABS: GLUCOMETER DEV NAME(LOC) 6N.2B; GLUCOSE,POINT OF CARE 152 MG/DL (70-110)
[2024-08-09 04:00] VITALS: BP 156/83; PULSE 71; RESP 17; TEMP 97.9; O2SAT 95
[2024-08-09] MEDS: CloNIDine 0.1 MG/24 HOUR PATCH TD ONE (12:04)
[2024-08-09 15:31] VITALS: BP 167/79; PULSE 69; RESP 19; TEMP 98.2; O2SAT 97
[2024-08-16] MEDS ORDERED: CloNIDine 0.1 MG/24 HOUR PATCH TD SCH (09:00)
== END 2024-08-09 18:50 | DRG 305 ==
LOC: EMS 11:53 → EDH 14:12 → 5S 18:31 → 6S 08-08 13:42
PROVIDERS: ADMIT Internal Medicine; ATTEND Internal Medicine
DX: I16.1 Hypertensive emergency (principal); E11.9 Type 2 diabetes mellitus without complications; F01.50 Vascular dementia, unspecified severity, without behavioral disturbance, psychotic disturbance, mood disturbance, and anxiety; G89.29 Other chronic pain; F17.210 Nicotine dependence, cigarettes, uncomplicated; R29.6 Repeated falls; I10 Essential (primary) hypertension; M81.0 Age-related osteoporosis without current pathological fracture; Z79.899 Other long term (current) drug therapy; Z88.0 Allergy status to penicillin; Z86.73 Personal history of transient ischemic attack (TIA), and cerebral infarction without residual deficits; Z79.891 Long term (current) use of opiate analgesic
CPT/HCPCS: 70450; 71045; 80048; 81003; 82962; 85025; 93005; 96374; 97116; 97163; 97166; 97530; 97535; 99285; G0378; J0360; J1644; J3490; 36415-L1; 36415-TC

== ENCOUNTER 2024-12-22 17:49 | Inpatient (IN) | payer MEDICARE, OTHER ==
[~2024-12-22] VITALS: Ht 162.6 cm; Wt 80.1 kg
[~2024-12-22 17:49] MED LIST changes: -CLON0.1T2 PO; +CLON1PAT13 TP; +DONE-52 PO; -HEPA500018 SQ; +HYDR25TA84 PO; +MEMA5TAB16 PO; -ROSU10TA72 PO; +ROSU10TA98 PO
[2024-12-22] MEDS ORDERED: DEXTROSE 50%-WATER 25 GM/50 ML SYRINGE IVP PRN (18:30)
[2024-12-22] MEDS ORDERED: MAGNESIUM HYDROXIDE SUSPENSION 30 ML UDCUP PO PRN (18:30)
[2024-12-22 18:43] LABS: PLATELET COUNT (AUTO) 171 K/uL (150-450); RED BLOOD CELL COUNT(AUTO) 4.83 MIL/uL (4.00-5.20); RED CELL DISTRIBUTION WIDTH 12.7 % (11.5-14.5); WHITE BLOOD COUNT (AUTO) 4.7 K/uL (4.5-11.0)
[2024-12-22 18:47] LABS: CALCIUM, TOTAL 9.1 mg/dL (8.8-10.5); CREATININE 0.80 mg/dL (0.60-1.30); GLOMERULAR FILTR. RATE CALC > 60 mL/min (>60); GLUCOSE,RANDOM 103 mg/dL (70-110); SODIUM SERUM 139 mmol/L (136-145); UREA NITROGEN, BLOOD 16 mg/dL (7-18)
[2024-12-22 18:52] LABS: ASPARTATE AMINOTRANSFERASE 14 U/L (15-37); TOTAL PROTEIN, SERUM 7.1 g/dL (6.4-8.2)
[2024-12-22 18:53] LABS: TROPONIN I-HIGH SENSITIVITY 12 ng/L (<51)
[2024-12-22 19:11] LABS: CHOL/HDL RATIO 2.3 (3.9-5.7); LDL CHOL (CALC.) 62.0 mg/dL (0-130)
[2024-12-22] MEDS ORDERED: SODIUM CHLORIDE 0.9% 100 ML ONE (19:12)
[2024-12-22] MEDS ORDERED: IOHEXOL 350 MG/ML 100 ML VIAL ONE (19:12)
[2024-12-22] MEDS ORDERED: 0.9% SODIUM CHLORIDE 10 ML SYRINGE IVP ONE (19:12)
[2024-12-22] MEDS: ASPIRIN 81 MG CHEWABLE TABLET PO SCH (19:18)
[2024-12-22] MEDS: ATORVASTATIN CALCIUM 40 MG TABLET PO SCH (19:18)
[2024-12-22] MEDS: CLOPIDOGREL BISULFATE 75 MG TABLET PO SCH (19:18)
[2024-12-22 20:29] VITALS: BP 216/84; PULSE 55; RESP 18; TEMP 98.2; O2SAT 99
[2024-12-22] MEDS: DOCUSATE SODIUM 100 MG CAPSULE PO SCH (20:52)
[2024-12-22 22:00] VITALS: BP 157/65; PULSE 51; RESP 18; O2SAT 99
[2024-12-22 23:46] VITALS: BP 158/79; PULSE 55; RESP 18; TEMP 97.3; O2SAT 98
[2024-12-23] VITALS (9 sets, daily range): BP systolic 126–205; BP diastolic 54–102; PULSE 51–100; RESP 16–20; TEMP 97.2–98.4; O2SAT 95–100
[2024-12-23 00:23] LABS: TROPONIN I-HIGH SENSITIVITY 17 ng/L (<51)
[2024-12-23] MEDS: ONDANSETRON HCL 4 MG/2 ML VIAL IVP PRN (01:06)
[2024-12-23 01:26] LABS: GLUCOMETER DEV NAME(LOC) 5S.2D; GLUCOSE,POINT OF CARE 124 MG/DL (70-110)
[2024-12-23 05:21] LABS: GLUCOMETER DEV NAME(LOC) 5S.2D; GLUCOSE,POINT OF CARE 123 MG/DL (70-110)
[2024-12-23 07:28] LABS: TROPONIN I-HIGH SENSITIVITY 17 ng/L (<51)
[2024-12-23] MEDS: CloNIDine 0.1 MG/24 HOUR PATCH TD SCH (08:24)
[2024-12-23] MEDS: FAMOTIDINE 20 MG TABLET PO SCH (09:00)
[2024-12-23] MEDS: METHADONE HCL 10 MG TABLET PO SCH (09:00)
[2024-12-23] MEDS: INSULIN LISPRO 100 UNITS/ML SQ PRN (11:38)
[2024-12-23] MEDS: PANTOPRAZOLE SODIUM 40 MG/VIAL IVP SCH ×2 (12:45→20:15)
[2024-12-23] MEDS: METOCLOPRAMIDE HCL 5 MG/ML 2 ML VIAL IVP PRN (15:30)
[2024-12-23 19:10] LABS: GLUCOMETER DEV NAME(LOC) 5N.2C; GLUCOSE,POINT OF CARE 164 MG/DL (70-110)
[2024-12-23 19:10] LABS: GLUCOMETER DEV NAME(LOC) 5N.2C; GLUCOSE,POINT OF CARE 206 MG/DL (70-110)
[2024-12-23 20:31] LABS: GLUCOMETER DEV NAME(LOC) 5N.1D; GLUCOSE,POINT OF CARE 146 MG/DL (70-110)
[2024-12-24] VITALS (9 sets, daily range): BP systolic 144–189; BP diastolic 57–71; PULSE 67–85; RESP 16–18; TEMP 97.7–99.1; O2SAT 93–97
[2024-12-24 11:12] LABS: PLATELET COUNT (AUTO) 197 K/uL (150-450); RED BLOOD CELL COUNT(AUTO) 5.15 MIL/uL (4.00-5.20); RED CELL DISTRIBUTION WIDTH 13.1 % (11.5-14.5); WHITE BLOOD COUNT (AUTO) 12.2 K/uL (4.5-11.0)
[2024-12-24] MEDS: DEXTROSE 5%-0.45% SODIUM CHL 1,000 ML IV SCH (11:16)
[2024-12-24 11:28] LABS: CALCIUM, TOTAL 9.2 mg/dL (8.8-10.5); CREATININE 0.84 mg/dL (0.60-1.30); GLOMERULAR FILTR. RATE CALC > 60 mL/min (>60); GLUCOSE,RANDOM 151 mg/dL (70-110); SODIUM SERUM 141 mmol/L (136-145); UREA NITROGEN, BLOOD 15 mg/dL (7-18)
[2024-12-24 11:51] LABS: GLUCOMETER DEV NAME(LOC) 5N.1D; GLUCOSE,POINT OF CARE 147 MG/DL (70-110)
[2024-12-24] MEDS: *CLINICAL-LEVOFLOXACIN IVPB DOSING CLINICAL ONE (16:30)
[2024-12-24] MEDS ORDERED: SODIUM CHLORIDE 0.9% 500 ML IV ONE (17:40)
[2024-12-24] MEDS: LEVOFLOXACIN 750 MG/D5% WATER 150 ML IV SCH (17:42)
[2024-12-24 18:37] LABS: ALCOHOL, URINE DRUG SCREEN NEGATIVE (NEGATIVE); AMPHET/METH SCREEN,URINE NEGATIVE (NEGATIVE); BARBITURATE SCREEN, URINE NEGATIVE (NEGATIVE); CANNABINOID SCREEN,URINE NEGATIVE (NEGATIVE); COCAINE SCREEN,URINE NEGATIVE (NEGATIVE); METHADONE SCREEN, URINE POSITIVE (NEGATIVE)
[2024-12-24 18:42] LABS: APPEARANCE,URINE CLEAR (CLEAR); GLUCOSE, URINE (UA) NEGATIVE (NEGATIVE); LEUKOCYTE ESTERASE ,URINE NEGATIVE (NEGATIVE); NITRATE,URINE NEGATIVE (NEGATIVE); OCCULT BLOOD,URINE NEGATIVE (NEGATIVE); PH,URINE DRUG SCREEN 6.0 (5.0-8.0); SPECIFIC GRAVITIY, URINE 1.029 (1.003-1.030)
[2024-12-24 19:02] LABS: AMORPHOUS SEDIMENT,UR Many /LPF (None Seen); SQUAMOUS EPITHELIAL CELL,UR Few /LPF (None Seen)
[2024-12-24 19:21] LABS: GLUCOMETER DEV NAME(LOC) 5N.1D; GLUCOSE,POINT OF CARE 192 MG/DL (70-110)
[2024-12-24 19:21] LABS: GLUCOMETER DEV NAME(LOC) 5N.1D; GLUCOSE,POINT OF CARE 187 MG/DL (70-110)
[2024-12-25 00:10] VITALS: BP 186/75; PULSE 76; RESP 18; TEMP 98.4; O2SAT 98
[2024-12-25 04:38] VITALS: BP 187/83; PULSE 81; RESP 18; TEMP 98.6; O2SAT 93
[2024-12-25 06:29] LABS: PLATELET COUNT (AUTO) 168 K/uL (150-450); RED BLOOD CELL COUNT(AUTO) 5.45 MIL/uL (4.00-5.20); RED CELL DISTRIBUTION WIDTH 13.5 % (11.5-14.5); WHITE BLOOD COUNT (AUTO) 9.5 K/uL (4.5-11.0)
[2024-12-25 06:47] LABS: CALCIUM, TOTAL 9.4 mg/dL (8.8-10.5); CREATININE 0.86 mg/dL (0.60-1.30); GLOMERULAR FILTR. RATE CALC > 60 mL/min (>60); GLUCOSE,RANDOM 166 mg/dL (70-110); SODIUM SERUM 140 mmol/L (136-145); UREA NITROGEN, BLOOD 14 mg/dL (7-18)
[2024-12-25 08:30] VITALS: BP 181/67; PULSE 60; RESP 18; TEMP 98.8; O2SAT 98
[2024-12-25 08:46] LABS: GLUCOMETER DEV NAME(LOC) 5N.1D; GLUCOSE,POINT OF CARE 163 MG/DL (70-110)
[2024-12-25 08:46] LABS: GLUCOMETER DEV NAME(LOC) 5N.1D; GLUCOSE,POINT OF CARE 171 MG/DL (70-110)
[2024-12-25] MEDS ORDERED: HYDR-4268 TP (11:31)
[2024-12-25] MEDS ORDERED: METF-1211 PO (11:31)
[2024-12-25 12:09] VITALS: BP 172/62; PULSE 83; RESP 17; TEMP 97.9; O2SAT 96
[2024-12-25] MEDS: LABETALOL HCL 5 MG/ML 20 ML VIAL IVP PRN (15:40)
[2024-12-25 15:45] VITALS: BP 166/64; PULSE 74; RESP 18; TEMP 98.1; O2SAT 97
[2024-12-25 19:43] VITALS: BP 161/68; PULSE 70; RESP 18; TEMP 97.7; O2SAT 90
[2024-12-26] VITALS (8 sets, daily range): BP systolic 142–194; BP diastolic 61–88; PULSE 69–79; RESP 18–19; TEMP 97.7–99; O2SAT 93–99
[2024-12-26 06:05] LABS: GLUCOMETER DEV NAME(LOC) 5N.2C; GLUCOSE,POINT OF CARE 198 MG/DL (70-110)
[2024-12-26 06:05] LABS: GLUCOMETER DEV NAME(LOC) 5N.2C; GLUCOSE,POINT OF CARE 138 MG/DL (70-110)
[2024-12-26 06:16] LABS: GLUCOMETER DEV NAME(LOC) 5N.2C; GLUCOSE,POINT OF CARE 176 MG/DL (70-110)
[2024-12-26 07:01] LABS: CALCIUM, TOTAL 9.3 mg/dL (8.8-10.5); CREATININE 0.77 mg/dL (0.60-1.30); GLOMERULAR FILTR. RATE CALC > 60 mL/min (>60); GLUCOSE,RANDOM 142 mg/dL (70-110); SODIUM SERUM 141 mmol/L (136-145); UREA NITROGEN, BLOOD 15 mg/dL (7-18)
[2024-12-26 07:07] LABS: PLATELET COUNT (AUTO) 170 K/uL (150-450); RED BLOOD CELL COUNT(AUTO) 4.79 MIL/uL (4.00-5.20); RED CELL DISTRIBUTION WIDTH 12.8 % (11.5-14.5); WHITE BLOOD COUNT (AUTO) 8.3 K/uL (4.5-11.0)
[2024-12-26] MEDS: SCOPOLAMINE HYDROBROMIDE 1 MG/72 HOUR PATCH TD SCH (17:11)
[2024-12-26] MEDS: MAG HYDROX/ALUMINUM HYD/SIMETH 30 ML SUSPENSION UDCUP PO ONE (18:22)
[2024-12-26] MEDS: ACETAMINOPHEN 325 MG TABLET PO PRN (18:22)
[2024-12-26 21:20] LABS: GLUCOMETER DEV NAME(LOC) 5N.1D; GLUCOSE,POINT OF CARE 170 MG/DL (70-110)
[2024-12-26 21:21] LABS: GLUCOMETER DEV NAME(LOC) 5N.2C; GLUCOSE,POINT OF CARE 205 MG/DL (70-110)
[2024-12-27] VITALS (7 sets, daily range): BP systolic 125–184; BP diastolic 58–83; PULSE 57–78; RESP 18; TEMP 97–98.6; O2SAT 93–96
[2024-12-27 06:45] LABS: GLUCOMETER DEV NAME(LOC) 5S.2D; GLUCOSE,POINT OF CARE 170 MG/DL (70-110)
[2024-12-27 06:46] LABS: GLUCOMETER DEV NAME(LOC) 5S.2D; GLUCOSE,POINT OF CARE 168 MG/DL (70-110)
[2024-12-27] MEDS: METOCLOPRAMIDE HCL 5 MG/ML 2 ML VIAL IVP ONE (08:45)
[2024-12-27 12:41] LABS: GLUCOMETER DEV NAME(LOC) 5N.2C; GLUCOSE,POINT OF CARE 152 MG/DL (70-110)
[2024-12-27 12:41] LABS: GLUCOMETER DEV NAME(LOC) 5N.2C; GLUCOSE,POINT OF CARE 157 MG/DL (70-110)
[2024-12-27 15:11] LABS: CALCIUM, TOTAL 8.7 mg/dL (8.8-10.5); CREATININE 0.84 mg/dL (0.60-1.30); GLOMERULAR FILTR. RATE CALC > 60 mL/min (>60); GLUCOSE,RANDOM 147 mg/dL (70-110); SODIUM SERUM 138 mmol/L (136-145); UREA NITROGEN, BLOOD 14 mg/dL (7-18)
[2024-12-27] MEDS: DOCUSATE SODIUM 100 MG/10 ML LIQUID UDCUP NG SCH (20:54)
[2024-12-28] VITALS: BP 157/81; PULSE 66; RESP 18; TEMP 97.7; O2SAT 97
[2024-12-28 02:02] VITALS: BP 148/74; PULSE 62
[2024-12-28 04:00] VITALS: BP 144/60; PULSE 61; RESP 18; TEMP 97.9; O2SAT 96
[2024-12-28 04:21] LABS: GLUCOMETER DEV NAME(LOC) 5S.2D; GLUCOSE,POINT OF CARE 151 MG/DL (70-110)
[2024-12-28 04:21] LABS: GLUCOMETER DEV NAME(LOC) 5N.2C; GLUCOSE,POINT OF CARE 167 MG/DL (70-110)
[2024-12-28 07:10] LABS: GLUCOMETER DEV NAME(LOC) 5N.2C; GLUCOSE,POINT OF CARE 167 MG/DL (70-110)
[2024-12-28 07:27] LABS: PLATELET COUNT (AUTO) 145 K/uL (150-450); RED BLOOD CELL COUNT(AUTO) 4.11 MIL/uL (4.00-5.20); RED CELL DISTRIBUTION WIDTH 13.4 % (11.5-14.5); WHITE BLOOD COUNT (AUTO) 5.8 K/uL (4.5-11.0)
[2024-12-28 07:46] VITALS: BP 163/67; PULSE 64; RESP 18; TEMP 98.4; O2SAT 95
[2024-12-28 11:24] VITALS: BP 173/71; PULSE 69; RESP 18; TEMP 97.5; O2SAT 96
[2024-12-28 18:01] LABS: GLUCOMETER DEV NAME(LOC) 5N.2C; GLUCOSE,POINT OF CARE 192 MG/DL (70-110)
[2024-12-28 19:20] VITALS: BP 177/72; PULSE 69; RESP 19; TEMP 98.6; O2SAT 98
[2024-12-28 22:08] LABS: CALCIUM, TOTAL 7.7 mg/dL (8.8-10.5); CREATININE 0.78 mg/dL (0.60-1.30); GLOMERULAR FILTR. RATE CALC > 60 mL/min (>60); SODIUM SERUM 132 mmol/L (136-145); UREA NITROGEN, BLOOD 11 mg/dL (7-18)
[2024-12-28 22:11] LABS: GLUCOMETER DEV NAME(LOC) 5S.2D; GLUCOSE,POINT OF CARE 137 MG/DL (70-110)
[2024-12-28 22:43] LABS: GLUCOSE,RANDOM 640 mg/dL (70-110)
[2024-12-29 00:27] VITALS: BP 197/78; PULSE 76; RESP 19; TEMP 98; O2SAT 97
[2024-12-29 01:10] LABS: GLUCOMETER DEV NAME(LOC) 5N.2C; GLUCOSE,POINT OF CARE 119 MG/DL (70-110)
[2024-12-29 04:50] VITALS: BP 167/104; PULSE 89; RESP 19; TEMP 99.3; O2SAT 97
[2024-12-29] MEDS: POTASSIUM CHL 10 MEQ/WATER 50 ML IV SCH (07:02)
[2024-12-29] MEDS ORDERED: SODIUM CHLORIDE 0.9% 500 ML IV ONE ×2 (08:22→15:59)
[2024-12-29 08:27] VITALS: PULSE 73; RESP 18; TEMP 98.2; O2SAT 97
[2024-12-29 11:57] VITALS: BP 154/89; PULSE 72; RESP 18; TEMP 98.4; O2SAT 99
[2024-12-29 12:01] LABS: GLUCOMETER DEV NAME(LOC) 5N.2C; GLUCOSE,POINT OF CARE 200 MG/DL (70-110)
[2024-12-29 12:01] LABS: GLUCOMETER DEV NAME(LOC) 5N.2C; GLUCOSE,POINT OF CARE 163 MG/DL (70-110)
[2024-12-29 16:13] VITALS: BP 173/75; PULSE 60; RESP 18; TEMP 97.3; O2SAT 94
[2024-12-29 18:06] LABS: GLUCOMETER DEV NAME(LOC) 5N.2C; GLUCOSE,POINT OF CARE 188 MG/DL (70-110)
[2024-12-29 19:56] VITALS: BP 152/67; PULSE 69; RESP 19; TEMP 98.6; O2SAT 93
[2024-12-30 00:24] VITALS: BP 155/79; PULSE 77; RESP 19; TEMP 99; O2SAT 98
[2024-12-30 04:43] VITALS: BP 168/71; PULSE 72; RESP 18; TEMP 99.1; O2SAT 95
[2024-12-30 08:04] VITALS: BP 175/80; PULSE 75; RESP 18; TEMP 98.3; O2SAT 96
[2024-12-30 08:20] LABS: GLUCOMETER DEV NAME(LOC) 5S.2D; GLUCOSE,POINT OF CARE 188 MG/DL (70-110)
[2024-12-30 08:20] LABS: GLUCOMETER DEV NAME(LOC) 5N.1D; GLUCOSE,POINT OF CARE 156 MG/DL (70-110)
[2024-12-30 11:55] LABS: GLUCOMETER DEV NAME(LOC) 5N.1D; GLUCOSE,POINT OF CARE 181 MG/DL (70-110)
[2024-12-30 12:06] VITALS: BP 141/75; PULSE 79; RESP 18; TEMP 98.4; O2SAT 98
[2024-12-30 15:48] LABS: PLATELET COUNT (AUTO) 148 K/uL (150-450); RED BLOOD CELL COUNT(AUTO) 5.09 MIL/uL (4.00-5.20); RED CELL DISTRIBUTION WIDTH 12.9 % (11.5-14.5); WHITE BLOOD COUNT (AUTO) 7.4 K/uL (4.5-11.0)
[2024-12-30 16:01] LABS: CALCIUM, TOTAL 9.2 mg/dL (8.8-10.5); CREATININE 0.73 mg/dL (0.60-1.30); GLOMERULAR FILTR. RATE CALC > 60 mL/min (>60); GLUCOSE,RANDOM 150 mg/dL (70-110); SODIUM SERUM 138 mmol/L (136-145); UREA NITROGEN, BLOOD 15 mg/dL (7-18)
[2024-12-30 16:03] VITALS: BP 127/73; PULSE 91; RESP 18; TEMP 98.6; O2SAT 98
[2024-12-30 16:06] LABS: ASPARTATE AMINOTRANSFERASE 21 U/L (15-37); TOTAL PROTEIN, SERUM 7.0 g/dL (6.4-8.2)
[2024-12-30 18:06] LABS: GLUCOMETER DEV NAME(LOC) 5N.1D; GLUCOSE,POINT OF CARE 190 MG/DL (70-110)
[2024-12-30 20:47] VITALS: BP 167/75; PULSE 79; RESP 18; TEMP 99; O2SAT 97
[2024-12-30 21:41] LABS: GLUCOMETER DEV NAME(LOC) 5N.1D; GLUCOSE,POINT OF CARE 158 MG/DL (70-110)
[2024-12-31 00:32] VITALS: BP 171/74; PULSE 71; RESP 20; TEMP 99.7; O2SAT 98
[2024-12-31 04:36] VITALS: BP 156/54; PULSE 71; RESP 18; TEMP 99.1; O2SAT 99
[2024-12-31 08:31] VITALS: BP 140/82; PULSE 78; RESP 17; TEMP 97.8; O2SAT 98
[2024-12-31 11:50] LABS: GLUCOMETER DEV NAME(LOC) 5N.1D; GLUCOSE,POINT OF CARE 187 MG/DL (70-110)
[2024-12-31 11:50] LABS: GLUCOMETER DEV NAME(LOC) 5N.1D; GLUCOSE,POINT OF CARE 123 MG/DL (70-110)
[2024-12-31 12:32] VITALS: BP 115/57; PULSE 74; RESP 16; TEMP 98.4; O2SAT 97
[2024-12-31] MEDS ORDERED: SODIUM CHLORIDE 0.9% 100 ML ONE (13:24)
[2024-12-31] MEDS ORDERED: IOHEXOL 350 MG/ML 100 ML VIAL ONE (13:24)
[2024-12-31] MEDS ORDERED: 0.9% SODIUM CHLORIDE 10 ML SYRINGE IVP ONE (13:24)
[2024-12-31 15:49] VITALS: BP_SYST 114; BP_SYST 137; BP_DIAS 65; BP_DIAS 74; PULSE 66; PULSE 71; RESP 16; TEMP 97.9; TEMP 98.2; O2SAT 97; O2SAT 98
[2024-12-31 17:15] LABS: GLUCOMETER DEV NAME(LOC) 5N.1D; GLUCOSE,POINT OF CARE 185 MG/DL (70-110)
[2024-12-31 20:00] VITALS: BP 149/76; PULSE 69; RESP 18; TEMP 97.9; O2SAT 96
[2025-01-01 04:00] VITALS: BP 147/63; PULSE 77; RESP 18; TEMP 98.4; O2SAT 97
[2025-01-01 05:41] LABS: GLUCOMETER DEV NAME(LOC) 6N.1C; GLUCOSE,POINT OF CARE 143 MG/DL (70-110)
[2025-01-01 07:25] VITALS: BP 144/59; PULSE 65; RESP 18; TEMP 97.9; O2SAT 99
[2025-01-01 11:16] LABS: GLUCOMETER DEV NAME(LOC) 6N.2C; GLUCOSE,POINT OF CARE 168 MG/DL (70-110)
[2025-01-01 12:11] LABS: GLUCOMETER DEV NAME(LOC) 6N.2C; GLUCOSE,POINT OF CARE 177 MG/DL (70-110)
[2025-01-01 15:20] VITALS: BP 148/72; PULSE 60; RESP 18; TEMP 98.1; O2SAT 98
[2025-01-01 18:06] LABS: GLUCOMETER DEV NAME(LOC) 6N.1C; GLUCOSE,POINT OF CARE 192 MG/DL (70-110)
[2025-01-01 20:10] VITALS: BP 138/72; PULSE 60; RESP 18; TEMP 98.2; O2SAT 98
[2025-01-01 22:16] LABS: GLUCOMETER DEV NAME(LOC) 6N.2C; GLUCOSE,POINT OF CARE 166 MG/DL (70-110)
[2025-01-02 04:50] VITALS: BP 149/73; PULSE 64; RESP 18; TEMP 98.8; O2SAT 94
[2025-01-02 06:36] LABS: GLUCOMETER DEV NAME(LOC) 6N.2C; GLUCOSE,POINT OF CARE 142 MG/DL (70-110)
[2025-01-02 08:40] VITALS: BP 143/73; PULSE 59; RESP 18; TEMP 98.4; O2SAT 98
[2025-01-02 12:16] LABS: GLUCOMETER DEV NAME(LOC) 6N.2C; GLUCOSE,POINT OF CARE 135 MG/DL (70-110)
[2025-01-02 16:47] VITALS: BP 163/62; PULSE 60; RESP 18; TEMP 98.4; O2SAT 100
[2025-01-02 17:51] LABS: GLUCOMETER DEV NAME(LOC) 6N.1C; GLUCOSE,POINT OF CARE 151 MG/DL (70-110)
[2025-01-02 18:48] VITALS: BP 149/62; PULSE 63; RESP 18; TEMP 98.3; O2SAT 96
[2025-01-02 20:00] VITALS: BP 148/68; PULSE 67; RESP 18; TEMP 98.6; O2SAT 95
[2025-01-02 21:46] LABS: GLUCOMETER DEV NAME(LOC) 6N.2C; GLUCOSE,POINT OF CARE 139 MG/DL (70-110)
[2025-01-02 23:51] LABS: PLATELET COUNT (AUTO) 165 K/uL (150-450); RED BLOOD CELL COUNT(AUTO) 4.30 MIL/uL (4.00-5.20); RED CELL DISTRIBUTION WIDTH 12.6 % (11.5-14.5); WHITE BLOOD COUNT (AUTO) 6.6 K/uL (4.5-11.0)
[2025-01-03 00:05] LABS: CALCIUM, TOTAL 8.6 mg/dL (8.8-10.5); CREATININE 0.85 mg/dL (0.60-1.30); GLOMERULAR FILTR. RATE CALC > 60 mL/min (>60); GLUCOSE,RANDOM 144 mg/dL (70-110); SODIUM SERUM 139 mmol/L (136-145); UREA NITROGEN, BLOOD 19 mg/dL (7-18)
[2025-01-03 00:11] LABS: ASPARTATE AMINOTRANSFERASE 23 U/L (15-37); TOTAL PROTEIN, SERUM 6.2 g/dL (6.4-8.2)
[2025-01-03 06:06] LABS: GLUCOMETER DEV NAME(LOC) 6N.1C; GLUCOSE,POINT OF CARE 178 MG/DL (70-110)
[2025-01-03 07:20] VITALS: BP 158/66; PULSE 65; RESP 20; TEMP 97.9; O2SAT 94
[2025-01-03 13:26] LABS: GLUCOMETER DEV NAME(LOC) 6N.2C; GLUCOSE,POINT OF CARE 161 MG/DL (70-110)
[2025-01-03] MEDS: DEXTROSE 5%-0.45% SODIUM CHL 1,000 ML IV SCH (15:10)
[2025-01-03 17:20] LABS: GLUCOMETER DEV NAME(LOC) 6N.2C; GLUCOSE,POINT OF CARE 153 MG/DL (70-110)
[2025-01-03 18:03] VITALS: BP 169/70; PULSE 78; RESP 20; TEMP 98.1; O2SAT 95
[2025-01-03 19:00] VITALS: BP 148/98
[2025-01-03 19:54] VITALS: BP 161/88; PULSE 63; RESP 20; TEMP 97.9; O2SAT 94
[2025-01-03 21:14] VITALS: BP 125/66; RESP 18
[2025-01-03 23:12] VITALS: BP 165/62; PULSE 58; RESP 19; TEMP 98.6; O2SAT 94
[2025-01-04] MEDS: NICOTINE 14 MG/24 HOUR PATCH TD ONE (00:16)
[2025-01-04 04:30] VITALS: BP 181/75; PULSE 53; RESP 18; TEMP 98.1; O2SAT 94
[2025-01-04 08:41] LABS: GLUCOMETER DEV NAME(LOC) 6N.1C; GLUCOSE,POINT OF CARE 166 MG/DL (70-110)
[2025-01-04 08:52] VITALS: BP 152/71; PULSE 60; RESP 18; TEMP 97.9; O2SAT 94
[2025-01-04 16:38] VITALS: BP 188/85; PULSE 61; RESP 18; TEMP 97.8; O2SAT 96
[2025-01-04 20:27] VITALS: BP 157/70; PULSE 63; RESP 18; TEMP 98.4; O2SAT 95
[2025-01-04 21:05] LABS: GLUCOMETER DEV NAME(LOC) 4S.2; GLUCOSE,POINT OF CARE 152 MG/DL (70-110)
[2025-01-05 04:46] VITALS: BP 171/64; PULSE 60; RESP 20; TEMP 98.2; O2SAT 94
[2025-01-05 05:01] LABS: GLUCOMETER DEV NAME(LOC) 4S.2; GLUCOSE,POINT OF CARE 127 MG/DL (70-110)
[2025-01-05 05:45] VITALS: BP 157/64
[2025-01-05 08:27] VITALS: BP 150/67; PULSE 61; RESP 18; TEMP 97.5; O2SAT 95
[2025-01-05 12:40] LABS: GLUCOMETER DEV NAME(LOC) 4S.2; GLUCOSE,POINT OF CARE 142 MG/DL (70-110)
[2025-01-05 16:53] VITALS: BP 178/79; PULSE 68; RESP 18; TEMP 97.5; O2SAT 98
[2025-01-05 18:25] LABS: GLUCOMETER DEV NAME(LOC) 4S.2; GLUCOSE,POINT OF CARE 145 MG/DL (70-110)
[2025-01-05 20:25] VITALS: BP 167/65; PULSE 64; RESP 20; TEMP 98.2; O2SAT 92
[2025-01-06 00:38] LABS: APPEARANCE,URINE TURBID (CLEAR); GLUCOSE, URINE (UA) NEGATIVE (NEGATIVE); LEUKOCYTE ESTERASE ,URINE MODERATE (NEGATIVE); NITRATE,URINE NEGATIVE (NEGATIVE); OCCULT BLOOD,URINE LARGE (NEGATIVE); SPECIFIC GRAVITIY, URINE 1.009 (1.003-1.030)
[2025-01-06 00:43] LABS: SQUAMOUS EPITHELIAL CELL,UR None Seen /LPF (None Seen)
[2025-01-06 00:45] VITALS: BP 153/68; PULSE 63; RESP 18; TEMP 98.1; O2SAT 94
[2025-01-06 04:52] VITALS: BP 198/93; PULSE 79; RESP 20; TEMP 98.2; O2SAT 93
[2025-01-06 06:00] LABS: SULFOSALICYLIC ACID,URINE 4+ (Negative)
[2025-01-06 06:11] LABS: GLUCOMETER DEV NAME(LOC) 4S.2; GLUCOSE,POINT OF CARE 141 MG/DL (70-110)
[2025-01-06 08:00] VITALS: BP 155/86; PULSE 62; RESP 20; TEMP 98.6; O2SAT 95
[2025-01-06 09:08] LABS: CALCIUM, TOTAL 8.8 mg/dL (8.8-10.5); CREATININE 0.75 mg/dL (0.60-1.30); GLOMERULAR FILTR. RATE CALC > 60 mL/min (>60); GLUCOSE,RANDOM 105 mg/dL (70-110); PLATELET COUNT (AUTO) 244 K/uL (150-450); RED BLOOD CELL COUNT(AUTO) 4.74 MIL/uL (4.00-5.20); RED CELL DISTRIBUTION WIDTH 12.6 % (11.5-14.5); SODIUM SERUM 138 mmol/L (136-145); UREA NITROGEN, BLOOD 10 mg/dL (7-18); WHITE BLOOD COUNT (AUTO) 9.5 K/uL (4.5-11.0)
[2025-01-06 11:36] LABS: GLUCOMETER DEV NAME(LOC) 6N.1C; GLUCOSE,POINT OF CARE 146 MG/DL (70-110)
[2025-01-06 15:31] LABS: GLUCOMETER DEV NAME(LOC) 6N.1C; GLUCOSE,POINT OF CARE 420 MG/DL (70-110)
[2025-01-06 15:31] LABS: GLUCOMETER DEV NAME(LOC) 6N.1C; GLUCOSE,POINT OF CARE 455 MG/DL (70-110)
[2025-01-06 15:31] LABS: GLUCOMETER DEV NAME(LOC) 6N.1C; GLUCOSE,POINT OF CARE 158 MG/DL (70-110)
[2025-01-06 16:00] VITALS: BP 183/100; PULSE 74; RESP 19; TEMP 98.6; O2SAT 100
[2025-01-06 18:00] VITALS: BP 157/74; RESP 20; O2SAT 100
[2025-01-06 20:47] VITALS: BP 148/90; PULSE 64; RESP 18; TEMP 99.1; O2SAT 98
[2025-01-07 04:15] LABS: GLUCOMETER DEV NAME(LOC) 6N.1C; GLUCOSE,POINT OF CARE 170 MG/DL (70-110)
[2025-01-07 05:53] VITALS: BP 168/81; PULSE 60; RESP 20; TEMP 98.1; O2SAT 95
[2025-01-07 07:30] LABS: GLUCOMETER DEV NAME(LOC) 6N.2C; GLUCOSE,POINT OF CARE 141 MG/DL (70-110)
[2025-01-07 07:30] LABS: GLUCOMETER DEV NAME(LOC) 6N.2C; GLUCOSE,POINT OF CARE 161 MG/DL (70-110)
[2025-01-07 08:28] VITALS: BP 163/64; PULSE 60; RESP 19; TEMP 97.8; O2SAT 94
[2025-01-07 10:26] LABS: GLUCOMETER DEV NAME(LOC) 4S.2; GLUCOSE,POINT OF CARE 161 MG/DL (70-110)
[2025-01-07 10:26] LABS: GLUCOMETER DEV NAME(LOC) 4S.2; GLUCOSE,POINT OF CARE 158 MG/DL (70-110)
[2025-01-07 13:51] LABS: GLUCOMETER DEV NAME(LOC) 4S.2; GLUCOSE,POINT OF CARE 165 MG/DL (70-110)
[2025-01-07 16:46] VITALS: BP 148/83; PULSE 55; RESP 18; TEMP 98; O2SAT 95
[2025-01-07 18:31] LABS: GLUCOMETER DEV NAME(LOC) 4S.2; GLUCOSE,POINT OF CARE 146 MG/DL (70-110)
[2025-01-07 20:44] VITALS: BP 146/78; PULSE 60; RESP 18; TEMP 98.1; O2SAT 96
[2025-01-07 21:35] LABS: GLUCOMETER DEV NAME(LOC) 4S.2; GLUCOSE,POINT OF CARE 125 MG/DL (70-110)
[2025-01-08 03:29] VITALS: BP 149/83; PULSE 58; RESP 18; TEMP 98.1; O2SAT 95
[2025-01-08] MEDS ORDERED: SODIUM CHLORIDE 0.9% 1,000 ML ONE (06:23)
[2025-01-08 07:18] VITALS: BP 172/73; PULSE 57; RESP 18; TEMP 97.5; O2SAT 97
[2025-01-08] MEDS ORDERED: PROPOFOL 1% 20 ML VIAL IVP ONE (11:14)
[2025-01-08 11:55] LABS: GLUCOMETER DEV NAME(LOC) 6N.2C; GLUCOSE,POINT OF CARE 144 MG/DL (70-110)
[2025-01-08] MEDS ORDERED: DEXTROSE 50%-WATER 25 GM/50 ML SYRINGE IVP PRN (15:15)
[2025-01-08 15:35] VITALS: BP 170/78; PULSE 88; RESP 20; TEMP 98.1; O2SAT 94
[2025-01-08] MEDS: LABETALOL HCL 5 MG/ML 20 ML VIAL IVP PRN (16:24)
[2025-01-08] MEDS: HYDROGEN PEROXIDE 3% 473 ML SOLUTION TP SCH (16:30)
[2025-01-08] MEDS: POVIDONE-IODINE 10% 120 ML SOLUTION TP SCH (17:49)
[2025-01-08] MEDS: INSULIN LISPRO 100 UNITS/ML SQ PRN (17:51)
[2025-01-08 20:20] LABS: GLUCOMETER DEV NAME(LOC) 6N.2C; GLUCOSE,POINT OF CARE 161 MG/DL (70-110)
[2025-01-08 20:20] LABS: GLUCOMETER DEV NAME(LOC) 6N.2C; GLUCOSE,POINT OF CARE 148 MG/DL (70-110)
[2025-01-08 20:55] VITALS: BP 144/78; PULSE 91; RESP 18; TEMP 100.9; O2SAT 96
[2025-01-08] MEDS: PANTOPRAZOLE SODIUM 40 MG/VIAL IVP SCH (20:57)
[2025-01-08] MEDS: DOCUSATE SODIUM 100 MG/10 ML LIQUID UDCUP GT SCH (20:57)
[2025-01-08] MEDS: ACETAMINOPHEN 650 MG/20.3 ML SOLUTION UDCUP GT PRN (21:01)
[2025-01-08] MEDS: ONDANSETRON HCL 4 MG/2 ML VIAL IVP PRN (21:27)
[2025-01-09 03:34] VITALS: BP 153/67; PULSE 74; RESP 18; TEMP 97.9; O2SAT 98
[2025-01-09 08:26] VITALS: BP 146/72; PULSE 82; RESP 18; TEMP 97.9; O2SAT 98
[2025-01-09] MEDS: ATORVASTATIN CALCIUM 40 MG TABLET GT SCH (08:57)
[2025-01-09] MEDS: METHADONE HCL 10 MG TABLET GT SCH (08:57)
[2025-01-09 11:45] LABS: GLUCOMETER DEV NAME(LOC) 6N.2C; GLUCOSE,POINT OF CARE 140 MG/DL (70-110)
[2025-01-09 11:45] LABS: GLUCOMETER DEV NAME(LOC) 6N.2C; GLUCOSE,POINT OF CARE 184 MG/DL (70-110)
[2025-01-09 16:12] VITALS: BP 148/82; PULSE 80; RESP 18; TEMP 97.8; O2SAT 98
[2025-01-09 17:35] LABS: GLUCOMETER DEV NAME(LOC) 6N.2C; GLUCOSE,POINT OF CARE 213 MG/DL (70-110)
[2025-01-09 18:40] LABS: PLATELET COUNT (AUTO) 252 K/uL (150-450); RED BLOOD CELL COUNT(AUTO) 4.41 MIL/uL (4.00-5.20); RED CELL DISTRIBUTION WIDTH 13.2 % (11.5-14.5); WHITE BLOOD COUNT (AUTO) 13.3 K/uL (4.5-11.0)
[2025-01-09 18:42] LABS: CALCIUM, TOTAL 8.8 mg/dL (8.8-10.5); CREATININE 1.24 mg/dL (0.60-1.30); GLOMERULAR FILTR. RATE CALC 51.0 mL/min (>60); GLUCOSE,RANDOM 175.0 mg/dL (70-110); SODIUM SERUM 143.0 mmol/L (136-145); UREA NITROGEN, BLOOD 25.0 mg/dL (7-18)
[2025-01-09 18:45] LABS: ASPARTATE AMINOTRANSFERASE 21.0 U/L (15-37); TOTAL PROTEIN, SERUM 6.5 g/dL (6.4-8.2)
[2025-01-09 19:01] LABS: GLUCOMETER DEV NAME(LOC) 6N.2C; GLUCOSE,POINT OF CARE 186 MG/DL (70-110)
[2025-01-09 19:50] VITALS: BP 128/59; PULSE 65; RESP 18; TEMP 98.8; O2SAT 94
[2025-01-09] MEDS: SODIUM CHLORIDE 0.9% 1,000 ML IV SCH (21:51)
[2025-01-09] MEDS: POTASSIUM CHL 10 MEQ/WATER 50 ML IV PRN (21:51)
[2025-01-09 22:14] VITALS: PULSE 82; RESP 20; O2SAT 100
[2025-01-10] VITALS (13 sets, daily range): BP systolic 116–166; BP diastolic 53–88; PULSE 62–87; RESP 16–20; TEMP 99–99.9; O2SAT 94–100
[2025-01-10] MEDS: IPRATROPIUM BROMIDE 0.5 MG/2.5 ML NEB SOLUTION NEB SCH (02:29)
[2025-01-10] MEDS: ALBUTEROL SULFATE 2.5 MG/0.5 ML NEB SOLUTION NEB SCH (02:29)
[2025-01-10 10:40] LABS: GLUCOMETER DEV NAME(LOC) 4S.2; GLUCOSE,POINT OF CARE 169 MG/DL (70-110)
[2025-01-10 10:41] LABS: GLUCOMETER DEV NAME(LOC) 6N.1C; GLUCOSE,POINT OF CARE 130 MG/DL (70-110)
[2025-01-10] MEDS: SCOPOLAMINE HYDROBROMIDE 1 MG/72 HOUR PATCH TD SCH (11:15)
[2025-01-10 13:05] LABS: GLUCOMETER DEV NAME(LOC) 4S.2; GLUCOSE,POINT OF CARE 197 MG/DL (70-110)
[2025-01-10] MEDS: MAGNESIUM HYDROXIDE SUSPENSION 30 ML UDCUP GT PRN (17:28)
[2025-01-11] VITALS (14 sets, daily range): BP systolic 142–170; BP diastolic 56–78; PULSE 65–78; RESP 16–20; TEMP 97.7–99.7; O2SAT 93–100
[2025-01-11 06:31] LABS: GLUCOMETER DEV NAME(LOC) 4S.2; GLUCOSE,POINT OF CARE 131 MG/DL (70-110)
[2025-01-11] MEDS: METOCLOPRAMIDE HCL 5 MG/ML 2 ML VIAL IVP PRN (13:03)
[2025-01-11 15:27] LABS: PLATELET COUNT (AUTO) 237 K/uL (150-450); RED BLOOD CELL COUNT(AUTO) 4.20 MIL/uL (4.00-5.20); RED CELL DISTRIBUTION WIDTH 13.4 % (11.5-14.5); WHITE BLOOD COUNT (AUTO) 8.9 K/uL (4.5-11.0)
[2025-01-11 15:36] LABS: CALCIUM, TOTAL 8.6 mg/dL (8.8-10.5); CREATININE 0.81 mg/dL (0.60-1.30); GLOMERULAR FILTR. RATE CALC > 60 mL/min (>60); GLUCOSE,RANDOM 174 mg/dL (70-110); SODIUM SERUM 149 mmol/L (136-145); UREA NITROGEN, BLOOD 16 mg/dL (7-18)
[2025-01-11 15:41] LABS: ASPARTATE AMINOTRANSFERASE 51 U/L (15-37); TOTAL PROTEIN, SERUM 6.5 g/dL (6.4-8.2)
[2025-01-12] VITALS (11 sets, daily range): BP systolic 134–168; BP diastolic 60–86; PULSE 56–78; RESP 16–20; TEMP 98.8–99.3; O2SAT 93–100
[2025-01-12 04:46] LABS: GLUCOMETER DEV NAME(LOC) 6N.2C; GLUCOSE,POINT OF CARE 144 MG/DL (70-110)
[2025-01-12 04:46] LABS: GLUCOMETER DEV NAME(LOC) 6N.2C; GLUCOSE,POINT OF CARE 164 MG/DL (70-110)
[2025-01-12] MEDS: CLOPIDOGREL BISULFATE 75 MG TABLET PEG SCH (09:02)
[2025-01-12 12:41] LABS: GLUCOMETER DEV NAME(LOC) 4S.2; GLUCOSE,POINT OF CARE 126 MG/DL (70-110)
[2025-01-12 12:45] LABS: GLUCOMETER DEV NAME(LOC) 6N.1C; GLUCOSE,POINT OF CARE 225 MG/DL (70-110)
[2025-01-12 12:45] LABS: GLUCOMETER DEV NAME(LOC) 6N.1C; GLUCOSE,POINT OF CARE 158 MG/DL (70-110)
[2025-01-12 12:45] LABS: GLUCOMETER DEV NAME(LOC) 6N.1C; GLUCOSE,POINT OF CARE 133 MG/DL (70-110)
[2025-01-12] MEDS: TAMSULOSIN HCL 0.4 MG CAPSULE PO SCH (15:58)
[2025-01-12 18:00] LABS: GLUCOMETER DEV NAME(LOC) 6N.1C; GLUCOSE,POINT OF CARE 148 MG/DL (70-110)
[2025-01-13] VITALS (9 sets, daily range): BP systolic 144–160; BP diastolic 63–86; PULSE 52–68; RESP 18–20; TEMP 98.6–98.8; O2SAT 92–100
[2025-01-13 05:56] LABS: GLUCOMETER DEV NAME(LOC) 6N.1C; GLUCOSE,POINT OF CARE 147 MG/DL (70-110)
[2025-01-13] MEDS: CloNIDine 0.1 MG/24 HOUR PATCH TD SCH (09:08)
[2025-01-13 10:45] LABS: CALCIUM, TOTAL 8.7 mg/dL (8.8-10.5); CREATININE 0.75 mg/dL (0.60-1.30); GLOMERULAR FILTR. RATE CALC > 60 mL/min (>60); GLUCOSE,RANDOM 170 mg/dL (70-110); SODIUM SERUM 142 mmol/L (136-145); UREA NITROGEN, BLOOD 12 mg/dL (7-18)
[2025-01-13 18:56] LABS: GLUCOMETER DEV NAME(LOC) 6N.2C; GLUCOSE,POINT OF CARE 167 MG/DL (70-110)
[2025-01-13 18:56] LABS: GLUCOMETER DEV NAME(LOC) 6N.2C; GLUCOSE,POINT OF CARE 159 MG/DL (70-110)
[2025-01-13 20:01] LABS: GLUCOMETER DEV NAME(LOC) 6N.1C; GLUCOSE,POINT OF CARE 171 MG/DL (70-110)
[2025-01-13] MEDS: POTASSIUM CHLORIDE 20 MEQ ER TABLET PO PRN (21:37)
[2025-01-14] VITALS (8 sets, daily range): BP systolic 132–169; BP diastolic 58–70; PULSE 58–73; RESP 18–20; TEMP 98.1–99; O2SAT 95–100
[2025-01-14 06:20] LABS: GLUCOMETER DEV NAME(LOC) 6N.2C; GLUCOSE,POINT OF CARE 166 MG/DL (70-110)
[2025-01-14 06:20] LABS: GLUCOMETER DEV NAME(LOC) 6N.2C; GLUCOSE,POINT OF CARE 182 MG/DL (70-110)
[2025-01-15] VITALS (11 sets, daily range): BP systolic 110–162; BP diastolic 58–73; PULSE 52–101; RESP 16–22; TEMP 97.9–100.9; O2SAT 93–100
[2025-01-15] MEDS ORDERED: METOCLOPRAMIDE HCL 5 MG/ML 2 ML VIAL IVP PRN (10:00)
[2025-01-15 12:01] LABS: GLUCOMETER DEV NAME(LOC) 6N.1C; GLUCOSE,POINT OF CARE 166 MG/DL (70-110)
[2025-01-15] MEDS: DEXTROSE 5%-0.45% SODIUM CHL 1,000 ML IV ONE (15:32)
[2025-01-15] MEDS: BISACODYL 10 MG RECTAL RECTAL SUPPOSITORY PR PRN (16:07)
[2025-01-15] MEDS: METOCLOPRAMIDE HCL 5 MG TABLET PEG SCH (16:07)
[2025-01-15] MEDS: *CLINICAL-LEVOFLOXACIN IVPB DOSING CLINICAL ONE (17:43)
[2025-01-15 18:21] LABS: PLATELET COUNT (AUTO) 227 K/uL (150-450); RED BLOOD CELL COUNT(AUTO) 4.48 MIL/uL (4.00-5.20); RED CELL DISTRIBUTION WIDTH 13.0 % (11.5-14.5); WHITE BLOOD COUNT (AUTO) 10.0 K/uL (4.5-11.0)
[2025-01-15 18:27] LABS: CALCIUM, TOTAL 9.2 mg/dL (8.8-10.5); CREATININE 1.17 mg/dL (0.60-1.30); GLOMERULAR FILTR. RATE CALC 55.0 mL/min (>60); GLUCOSE,RANDOM 260.0 mg/dL (70-110); SODIUM SERUM 144.0 mmol/L (136-145); UREA NITROGEN, BLOOD 20.0 mg/dL (7-18)
[2025-01-15] MEDS ORDERED: SODIUM CHLORIDE 0.9% 250 ML IV ONE (18:48)
[2025-01-15] MEDS: LEVOFLOXACIN 750 MG/D5% WATER 150 ML IV SCH (19:03)
[2025-01-15 19:51] LABS: GLUCOMETER DEV NAME(LOC) 6N.1C; GLUCOSE,POINT OF CARE 261 MG/DL (70-110)
[2025-01-15 20:21] LABS: APPEARANCE,URINE TURBID (CLEAR); GLUCOSE, URINE (UA) TRACE mg/dL (NEGATIVE); LEUKOCYTE ESTERASE ,URINE LARGE (NEGATIVE); NITRATE,URINE NEGATIVE (NEGATIVE); OCCULT BLOOD,URINE MODERATE (NEGATIVE); SPECIFIC GRAVITIY, URINE 1.039 (1.003-1.030)
[2025-01-15 21:45] LABS: SULFOSALICYLIC ACID,URINE 4+ (Negative)
[2025-01-15 21:48] LABS: HYALINE CASTS, URINE 0-2 /LPF (None Seen); SQUAMOUS EPITHELIAL CELL,UR Moderate /LPF (None Seen)
[2025-01-16] VITALS (11 sets, daily range): BP systolic 132–146; BP diastolic 59–76; PULSE 60–71; RESP 16–20; TEMP 97.5–98.9; O2SAT 94–100
[2025-01-16 00:07] LABS: INFLUENZA A-RTPCR,COMBO NEGATIVE (NEGATIVE); INFLUENZA B-RTPCR,COMBO NEGATIVE (NEGATIVE); RESPIRATORY SYNCYTIAL VRS-PCR NEGATIVE (NEGATIVE); SARS COVID19 RTPCR, COMBO NEGATIVE (NEGATIVE)
[2025-01-16 05:31] LABS: GLUCOMETER DEV NAME(LOC) 6N.2C; GLUCOSE,POINT OF CARE 177 MG/DL (70-110)
[2025-01-16 06:06] LABS: GLUCOMETER DEV NAME(LOC) 4S.2; GLUCOSE,POINT OF CARE 260 MG/DL (70-110)
[2025-01-16 12:21] LABS: GLUCOMETER DEV NAME(LOC) 4S.2; GLUCOSE,POINT OF CARE 141 MG/DL (70-110)
[2025-01-16 18:01] LABS: GLUCOMETER DEV NAME(LOC) 4S.2; GLUCOSE,POINT OF CARE 137 MG/DL (70-110)
[2025-01-17] VITALS (8 sets, daily range): BP systolic 129–145; BP diastolic 64–69; PULSE 64–74; RESP 18; TEMP 98.1–98.6; O2SAT 93–100
[2025-01-17 05:56] LABS: GLUCOMETER DEV NAME(LOC) 6N.2C; GLUCOSE,POINT OF CARE 179 MG/DL (70-110)
[2025-01-17 10:31] LABS: PLATELET COUNT (AUTO) 182 K/uL (150-450); RED BLOOD CELL COUNT(AUTO) 4.39 MIL/uL (4.00-5.20); RED CELL DISTRIBUTION WIDTH 12.9 % (11.5-14.5); WHITE BLOOD COUNT (AUTO) 10.7 K/uL (4.5-11.0)
[2025-01-17 10:41] LABS: CALCIUM, TOTAL 9.2 mg/dL (8.8-10.5); CREATININE 0.98 mg/dL (0.60-1.30); GLOMERULAR FILTR. RATE CALC > 60 mL/min (>60); GLUCOSE,RANDOM 189 mg/dL (70-110); SODIUM SERUM 144 mmol/L (136-145); UREA NITROGEN, BLOOD 18 mg/dL (7-18)
[2025-01-17 17:55] LABS: GLUCOMETER DEV NAME(LOC) 6N.2C; GLUCOSE,POINT OF CARE 172 MG/DL (70-110)
[2025-01-17 17:55] LABS: GLUCOMETER DEV NAME(LOC) 6N.2C; GLUCOSE,POINT OF CARE 157 MG/DL (70-110)
[2025-01-18 01:11] LABS: GLUCOMETER DEV NAME(LOC) 6N.2C; GLUCOSE,POINT OF CARE 119 MG/DL (70-110)
[2025-01-18 04:29] VITALS: BP 157/78; PULSE 87; RESP 18; TEMP 98.6; O2SAT 97
[2025-01-18 08:18] VITALS: BP 148/67; PULSE 68; RESP 17; TEMP 98.3; O2SAT 100
[2025-01-18 08:31] LABS: GLUCOMETER DEV NAME(LOC) 6N.2C; GLUCOSE,POINT OF CARE 149 MG/DL (70-110)
[2025-01-18 11:40] LABS: GLUCOMETER DEV NAME(LOC) 6N.2C; GLUCOSE,POINT OF CARE 159 MG/DL (70-110)
[2025-01-18 15:59] VITALS: BP 142/68; PULSE 66; RESP 18; TEMP 97.9; O2SAT 100
[2025-01-18 17:40] LABS: GLUCOMETER DEV NAME(LOC) 6N.2C; GLUCOSE,POINT OF CARE 152 MG/DL (70-110)
[2025-01-18 19:55] VITALS: BP 149/70; PULSE 66; RESP 18; TEMP 98.4; O2SAT 100
[2025-01-18 22:21] LABS: GLUCOMETER DEV NAME(LOC) 6N.2C; GLUCOSE,POINT OF CARE 123 MG/DL (70-110)
[2025-01-19 05:47] VITALS: BP 143/62; PULSE 68; RESP 18; TEMP 98.4; O2SAT 94
[2025-01-19 06:26] LABS: GLUCOMETER DEV NAME(LOC) 6N.1C; GLUCOSE,POINT OF CARE 148 MG/DL (70-110)
[2025-01-19 06:26] LABS: GLUCOMETER DEV NAME(LOC) 6N.1C; GLUCOSE,POINT OF CARE 138 MG/DL (70-110)
[2025-01-19 07:49] VITALS: BP 146/70; PULSE 68; RESP 18; TEMP 98.2; O2SAT 98
[2025-01-19 14:41] LABS: GLUCOMETER DEV NAME(LOC) 6N.2C; GLUCOSE,POINT OF CARE 157 MG/DL (70-110)
[2025-01-19 16:20] VITALS: BP 148/66; PULSE 68; RESP 18; TEMP 98.4; O2SAT 98
[2025-01-19 19:06] LABS: GLUCOMETER DEV NAME(LOC) 4E.2; GLUCOSE,POINT OF CARE 141 MG/DL (70-110)
[2025-01-19] MEDS ORDERED: SODIUM CHLORIDE 0.9% 250 ML IV ONE (19:06)
[2025-01-19 20:46] VITALS: BP 145/67; PULSE 70; RESP 18; TEMP 98.8; O2SAT 96
[2025-01-20 01:51] LABS: GLUCOMETER DEV NAME(LOC) 4S.2; GLUCOSE,POINT OF CARE 127 MG/DL (70-110)
[2025-01-20 05:46] VITALS: BP 142/59; PULSE 69; RESP 18; TEMP 98.2; O2SAT 97
[2025-01-20 06:11] LABS: GLUCOMETER DEV NAME(LOC) 4E.2; GLUCOSE,POINT OF CARE 149 MG/DL (70-110)
[2025-01-20 06:11] LABS: GLUCOMETER DEV NAME(LOC) 4E.2; GLUCOSE,POINT OF CARE 178 MG/DL (70-110)
[2025-01-20 08:00] VITALS: BP 149/67; PULSE 68; RESP 19; TEMP 98.6; O2SAT 97
[2025-01-20 16:13] VITALS: BP 140/69; PULSE 66; RESP 19; TEMP 98.1; O2SAT 98
[2025-01-20 19:36] LABS: GLUCOMETER DEV NAME(LOC) 4E.2; GLUCOSE,POINT OF CARE 132 MG/DL (70-110)
[2025-01-20 21:17] VITALS: BP 149/59; PULSE 68; RESP 18; TEMP 98.4; O2SAT 96
[2025-01-20 21:36] LABS: GLUCOMETER DEV NAME(LOC) 4E.2; GLUCOSE,POINT OF CARE 153 MG/DL (70-110)
[2025-01-20 23:02] VITALS: PULSE 85; RESP 22; O2SAT 92
[2025-01-20 23:17] VITALS: PULSE 75; RESP 22; O2SAT 98
[2025-01-21] VITALS (9 sets, daily range): BP systolic 108–143; BP diastolic 52–76; PULSE 62–99; RESP 0–20; TEMP 98–98.6; O2SAT 95–99
[2025-01-21 11:46] LABS: GLUCOMETER DEV NAME(LOC) 4E.2; GLUCOSE,POINT OF CARE 171 MG/DL (70-110)
[2025-01-22 00:21] LABS: GLUCOMETER DEV NAME(LOC) 4S.2; GLUCOSE,POINT OF CARE 154 MG/DL (70-110)
[2025-01-22 04:42] VITALS: BP 143/72; PULSE 68; RESP 18; TEMP 97.7; O2SAT 100
[2025-01-22 05:51] LABS: GLUCOMETER DEV NAME(LOC) 4E.2; GLUCOSE,POINT OF CARE 144 MG/DL (70-110)
[2025-01-22 07:00] VITALS: PULSE 82; RESP 16; O2SAT 96
[2025-01-22 08:00] VITALS: PULSE 75; RESP 20; O2SAT 99
[2025-01-22 09:05] VITALS: BP 135/69; PULSE 69; RESP 18; TEMP 97.8; O2SAT 99
[2025-01-22 13:06] LABS: PLATELET COUNT (AUTO) 166 K/uL (150-450); RED BLOOD CELL COUNT(AUTO) 4.72 MIL/uL (4.00-5.20); RED CELL DISTRIBUTION WIDTH 12.9 % (11.5-14.5); WHITE BLOOD COUNT (AUTO) 6.8 K/uL (4.5-11.0)
[2025-01-22 13:19] LABS: CALCIUM, TOTAL 9.2 mg/dL (8.8-10.5); CREATININE 0.72 mg/dL (0.60-1.30); GLOMERULAR FILTR. RATE CALC > 60 mL/min (>60); GLUCOSE,RANDOM 140 mg/dL (70-110); SODIUM SERUM 141 mmol/L (136-145); UREA NITROGEN, BLOOD 18 mg/dL (7-18)
[2025-01-22 14:00] VITALS: PULSE 89; RESP 20; O2SAT 97
[2025-01-22 16:00] VITALS: BP 106/82; PULSE 74; RESP 18; TEMP 98.2; O2SAT 99
[2025-01-22 20:41] LABS: GLUCOMETER DEV NAME(LOC) 4E.2; GLUCOSE,POINT OF CARE 117 MG/DL (70-110)
== END 2025-01-22 21:35 | DRG 64 ==
LOC: EMS 17:49 → EDH 18:19 → EMS 18:40 → 5N 20:13 → 4E 12-31 18:05
PROVIDERS: ADMIT Internal Medicine; ATTEND Internal Medicine
PROC: 05HA33Z Insertion of Infusion Device into Left Brachial Vein, Percutaneous Approach (ICD-10-PCS; 2025-01-06)
PROC: B54NZZA Ultrasonography of Left Upper Extremity Veins, Guidance (ICD-10-PCS; 2025-01-06)
PROC: 0DH63UZ Insertion of Feeding Device into Stomach, Percutaneous Approach (ICD-10-PCS; principal; 2025-01-08 10:25)
DX: I63.81 Other cerebral infarction due to occlusion or stenosis of small artery (principal); E43 Unspecified severe protein-calorie malnutrition; J69.0 Pneumonitis due to inhalation of food and vomit; I16.1 Hypertensive emergency; I31.39 Other pericardial effusion (noninflammatory); N39.0 Urinary tract infection, site not specified; Z66 Do not resuscitate; E11.9 Type 2 diabetes mellitus without complications; Z79.891 Long term (current) use of opiate analgesic; R29.700 NIHSS score 0; F01.50 Vascular dementia, unspecified severity, without behavioral disturbance, psychotic disturbance, mood disturbance, and anxiety; R13.10 Dysphagia, unspecified; D69.6 Thrombocytopenia, unspecified; E87.6 Hypokalemia; G35.D Multiple sclerosis, unspecified; Z20.822 Contact with and (suspected) exposure to COVID-19; I10 Essential (primary) hypertension; R47.1 Dysarthria and anarthria; G89.4 Chronic pain syndrome; M81.0 Age-related osteoporosis without current pathological fracture; R29.810 Facial weakness; Z87.891 Personal history of nicotine dependence; Z88.0 Allergy status to penicillin; Z68.30 Body mass index [BMI] 30.0-30.9, adult
CPT/HCPCS: 36245; 36569; 70450; 70496; 70498; 70551; 71045; 71260; 74018; 74176; 74230; 76770; 76937; 80048; 80053; 80061; 80307; 81001; 81002; 82271; 82948; 82962; 83036; 84132; 84484; 85025; 85610; 85730; 86850; 86900; 86901; 87040; 87070; 87081; 87086; 87637; 92526; 92610; 92611; 93005; 93306; 93970; 94640; 94760; 97110; 97112; 97163; 97167; 97530; 97535; 99291; G0378; J0360; J0690; J1630; J1956; J2405; J2470; J2704; J2765; J3480; J3490; J7030; J7040; J7050; 36415-L1; 36415-TC; J7613